=== PATIENT | female | born 1945 | race Caucasian/White ===

== ENCOUNTER 2017-03-06 10:18 | Day surgery (SDC) | payer MEDICARE, OTHER ==
[2017-03-03 16:12] VITALS: BMI 31.1
[~2017-03-06 10:18] MED LIST: CLINDAMYCIN 600 MG in DEXTROSE 5% IN WATER 50 ML IVPB ONE; DEXAMETHASONE SOD PHOSPHATE 10 MG/ML 1 ML VIAL IV ONE; DEXAMETHASONE SOD PHOSPHATE 4 MG/ML 1 ML VIAL IV ONE; FAMOTIDINE 20 MG/2 ML VIAL IV ONE; HYDROmorphone 0.5 MG/0.5 ML SYRINGE IVP PRN; LACTATED RINGERS 1,000 ML IV SCH; ONDANSETRON 4 MG/2 ML VIAL IVP ONE
[2017-03-06 11:38] VITALS: TEMP 97.1
[2017-03-06] MEDS ORDERED: LIDOCAINE 1% 20 ML VIAL (10MG/ML) FOR IV START INTRADERMA ONE (11:53)
[2017-03-06] MEDS ORDERED: MIDAZOLAM 2 MG/2 ML VIAL IV ONE (12:02)
[2017-03-06] MEDS ORDERED: fentaNYL (PF) 50 MCG/ML 2 ML AMP ONE (13:32)
[2017-03-06] MEDS ORDERED: MIDAZOLAM 2 MG/2 ML VIAL ONE (13:32)
[2017-03-06] MEDS ORDERED: KETAMINE 10 MG/ML 20 ML VIAL ONE (13:32)
[2017-03-06] MEDS ORDERED: PROPOFOL 10 MG/ML 20 ML VIAL IV ONE (13:32)
[2017-03-06] MEDS ORDERED: LIDOCAINE 2%-EPI 1:100,000 20 ML VIAL SQ ONE ×2 (14:27)
[2017-03-06] MEDS ORDERED: LACTATED RINGERS 1,000 ML IV ONE (14:55)
[2017-03-06 15:10] VITALS: RESP 18
--- NOTE | 2017-03-06 15:20 | P.OP ---
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 A wider resection with between a 0.5 and a 1 cm margin is appropriate and recommended. This was agreed to by the patient. All risks, benefits, and alternative therapies were discussed in detail. Consent was obtained and all questions were answered. Operative Findings: large left cheek melanoma resected Description of Procedure: this patient was taken to the operative room and placed in the supine position. IV sedation was administered and the left face was sterilely prepped and draped in usual fashion. we marked this area including appropriate margins measuring between 0.5 and 1 cm surrounding this lesion. we anesthetized the left cheek with lidocaine 1% with epinephrine 1 100,000 in approximately 10 minutes were allowed wait for full vasoconstrictive effects to take place. this lesion was excised with a 15 blade delicate plastic scissors and a Brown-Adson forceps and marked appropriately with blue suture on the medial aspect and black suture on the inferior aspect. This left a large left cheek defect. We then developed medial and lateral pedicle flaps measuring a secondary defect of 9 x 9 cm. We did extensive undermining in all directions and we closed the defect by rotating the advancement flaps into position removing burrows triangles and prep and the skin edge. We utilized 3-0 PDS deeply we then used 4 -0 Monocryl in the deep skin and mid skin layer. The final skin closure was with use of a 6-0 nylon in a running nonlocking fashion. Steri-Strips were applied and the patient tolerated this well. follow-up will be in the office in 1 week for recheck and the patient is to contact me if any problems should arise in the interim.
[2017-03-06 15:36] VITALS: BP 132/76; PULSE 103
== END 2017-03-06 15:57 | disposition home or self-care (01) ==
LOC: OR 10:18
PROVIDERS: ATTEND Otolaryngology
DX: D03.39 Melanoma in situ of other parts of face (principal); F32.9 Major depressive disorder, single episode, unspecified; E78.00 Pure hypercholesterolemia, unspecified; I10 Essential (primary) hypertension; J45.909 Unspecified asthma, uncomplicated; E07.9 Disorder of thyroid, unspecified; Z88.0 Allergy status to penicillin; Z88.2 Allergy status to sulfonamides; Z88.8 Allergy status to other drugs, medicaments and biological substances; Z91.018 Allergy to other foods; Z98.51 Tubal ligation status; Z79.899 Other long term (current) drug therapy
CPT/HCPCS: 14301; 14302; J2250; J1100; J2405; J3010; J2704; 88305; 88341; 88342

== ENCOUNTER → 2017-10-08 | Outpatient (CLI) | payer MEDICARE, OTHER ==
--- NOTE | 2017-10-09 14:40 | MM ---
Reason for exam: screening (asymptomatic). Last mammogram was performed 2 years and 7 months ago. History: Patient is postmenopausal. Physical Findings: A clinical breast exam by your physician is recommended on an annual basis and results should be correlated with mammographic findings. MG 3D Screening Mammo W/Cad Bilateral CC and MLO view(s) were taken. Prior study comparison: March 24, 2015, mammogram, performed at [facility]. February 27, 2015, mammogram, performed at [facility]. January 02, 2007, bilateral screening mammogram w/CAD. The breast tissue is heterogeneously dense. This may lower the sensitivity of mammography. Finding: There are typically benign calcifications in the left breast. No suspicious abnormality. No significant changes in finding since March 24, 2015, February 27, 2015, and January 02, 2007. ASSESSMENT: Benign, BI-RAD 2 RECOMMENDATION: Routine screening mammogram of both breasts in 1 year.
== END | disposition home or self-care (01) ==
LOC: RADMAMWWP 10:30
PROVIDERS: ATTEND Family Medicine
DX: Z12.31 Encounter for screening mammogram for malignant neoplasm of breast (principal)
CPT/HCPCS: 77063; 77067

== ENCOUNTER 2019-10-07 15:03 | Emergency (ER) | payer MEDICARE, OTHER ==
[2019-10-07 15:19] VITALS: RESP 18; TEMP 97.6
--- NOTE | 2019-10-07 15:34 | ED ---
Fall HPI - General Chief Complaint: Fall Stated Complaint: Fall, sent by for CT Time Seen by Provider: 10/07/19 15:15 Source: patient, family Mode of arrival: wheelchair - History of Present Illness Initial Comments: The patient is a 73-year-old female past medical history of hypertension who presents to the emergency department after she had an abnormal outpatient CT. The patient reports a fall 1 week ago on when she was stepping out of her vehicle. She states she was bending down to grab her dog's leash when she fell forward and hit her chin on the cement. She denies any loss of consciousness at that time. Did not want to seek medical attention. She had multiple fractured teeth. She went to her primary care doctor 2 days ago because she was having right shoulder pain, headaches and the feeling of being off balance. Dr. Fernandes did send her for an x-ray of her right shoulder which demonstrated a fracture. He placed her in a sling. He sent her today for an outpatient CT. Patient was called and told that her CT was abnormal and needed to come to the emergency room. She does not take any blood thinners. Denies any unilateral numbness or weakness. denies any visual changes. No vomiting. No chest pain or shortness of breath. There are no other alleviating, precipitating or modifying factors - Related Data Home Medications Medication Instructions Recorded Confirmed Aspirin 81 mg PO DAILY 10/15/14 03/06/17 Thyroid, Pork [[place] Thyroid] 30 mg PO DAILY 10/15/14 03/06/17 Cholecalciferol (Vitamin D3) 2,000 unit PO DAILY 03/03/17 03/06/17 [Vitamin D3] DULoxetine HCL [Cymbalta] 60 mg PO DAILY 03/03/17 03/06/17 Magnesium 200 mg PO DAILY 03/03/17 03/06/17 Protriptyline HCl [Vivactil] 5 mg PO BID 03/03/17 03/06/17 Temazepam [Restoril] 15 mg PO HS PRN 03/03/17 03/06/17 aMILoride HCL 5 mg PO DAILY 03/03/17 03/06/17 Previous Rx's Medication Instructions Recorded Clindamycin HCl 300 mg PO Q12HR #20 cap 03/06/17 Hydrocodone/Acetaminophen [[place] 1 - 2 each PO Q6HR PRN #40 tab 03/06/17 5-325] predniSONE [Deltasone] 20 mg PO DIRECTED #5 tab 03/06/17 Allergies Allergy/AdvReac Type Severity Reaction Status Date / Time latex Allergy Rash/Hives Verified 10/07/19 15:19 [place] AdvReac Anaphylaxis Verified 10/07/19 15:19 buspirone HCl [From BuSpar] AdvReac Rapid Verified 10/07/19 15:19 Heart Rate Penicillins AdvReac abscess Verified 10/07/19 15:19 Sulfa (Sulfonamide AdvReac Unknown Verified 10/07/19 15:19 Antibiotics) Review of Systems ROS Statement: Those systems with pertinent positive or pertinent negative responses have been documented in the HPI. ROS Other: All systems not noted in ROS Statement are negative. 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 D &C's. Carpal Tunnel surgery bilat. Past Anesthesia/Blood Transfusion Reactions: Postoperative Nausea & Vomiting (PONV) Past Psychological History: Anxiety Smoking Status: Never smoker Past Alcohol Use History: None Reported Past Drug Use History: None Reported - Past Family History Mother Family Medical History: Cancer Additional Family Medical History / Comment(s): Leukemia Father Family Medical History: Cancer Additional Family Medical History / Comment(s): Lung General Exam Limitations: physical limitation General appearance: alert, in no apparent distress Head exam: Present: atraumatic, normocephalic, normal inspection Eye exam: Present: normal appearance, PERRL, EOMI. Absent: scleral icterus, conjunctival injection, periorbital swelling ENT exam: Present: normal exam, mucous membranes moist Neck exam: Present: normal inspection. Absent: tenderness, meningismus, lymphad enopathy Respiratory exam: Present: normal lung sounds bilaterally. Absent: respiratory distress, wheezes, rales, rhonchi, stridor Cardiovascular Exam: Present: regular rate, normal rhythm, normal heart sounds. Absent: systolic murmur, diastolic murmur, rubs, gallop, clicks GI/Abdominal exam: Present: soft, normal bowel sounds. Absent: distended, tenderness, guarding, rebound, rigid Extremities exam: Present: tenderness (Right shoulder. Right shoulder is in sling. 2+ radial and ulnar pulses.), normal capillary refill. Absent: pedal edema, joint swelling, calf tenderness Back exam: Present: normal inspection Neurological exam: Present: alert, oriented X3, CN II-XII intact Psychiatric exam: Present: normal affect, normal mood Skin exam: Present: warm, dry, intact, normal color. Absent: rash Course Vital Signs 10/07/19 10/07/19 15:15 16:02 Temperature 97.6 F Pulse Rate 81 86 Respiratory 18 18 Rate Blood Pressure 157/85 176/86 O2 Sat by Pulse 97 92 L Oximetry Medical Decision Making - Medical Decision Making Upon arrival patient placed into room 1. A thorough history and physical exam was performed. Patient has no focal neurologic deficits. I did review the patient's CT which was completed earlier today. CT demonstrates a small 6 mm thick, chronic subdural hematoma along the left frontal convexity with some admixed acute subdural blood. Additional foci of acute subarachnoid hemorrhage along the anterior left frontal lobe. Slight 4 mm of rightward midline shift. No herniation or hydrocephalus. Mild bifrontal atrophy and moderate changes. Because of these findings are did recommend transfer to a facility where there is neurosurgery available. Patient and her daughter at bedside did agree to this. I discussed case with Dr. Heredia at [facility] who accepted transfer. Patient is currently awaiting EMS arrival - Lab Data Result diagrams: 10/07/19 15:15 10/07/19 15:15 Lab Results 10/07/19 10/07/19 10/07/19 Range/Units 15:15 15:15 15:15 WBC 8.3 (3.8-10.6) k/uL RBC 4.79 (3.80-5.40) m/uL Hgb 15.1 (11.4-16.0) gm/dL Hct 46.6 H (34.0-46.0) % MCV 97.3 (80.0-100.0) fL MCH 31.5 (25.0-35.0) pg MCHC 32.4 (31.0-37.0) g/dL RDW 12.7 (11.5-15.5) % Plt Count 274 (150-450) k/uL Neutrophils % 60 % Lymphocytes % 30 % Monocytes % 5 % Eosinophils % 2 % Basophils % 1 % Neutrophils # 5.0 (1.3-7.7) k/uL Lymphocytes # 2.5 (1.0-4.8) k/uL Monocytes # 0.4 (0-1.0) k/uL Eosinophils # 0.2 (0-0.7) k/uL Basophils # 0.1 (0-0.2) k/uL PT 9.6 (9.0-12.0) sec INR 0.9 (<1.2) APTT 23.0 (22.0-30.0) sec Sodium 137 (137-145) mmol/L Potassium 4.3 (3.5-5.1) mmol/L Chloride 100 (98-107) mmol/L Carbon Dioxide 28 (22-30) mmol/L Anion Gap 9 mmol/L BUN 21 H (7-17) mg/dL Creatinine 0.58 (0.52-1.04) mg/dL Est GFR (CKD-EPI)AfAm >90 (>60 ml/min/1.73 sqM) Est GFR (CKD-EPI)NonAf >90 (>60 ml/min/1.73 sqM) Glucose 96 (74-99) mg/dL Calcium 10.1 (8.4-10.2) mg/dL Total Bilirubin 0.6 (0.2-1.3) mg/dL AST 24 (14-36) U/L ALT 13 (4-34) U/L Alkaline Phosphatase 107 (38-126) U/L Total Protein 7.9 (6.3-8.2) g/dL Albumin 4.6 (3.5-5.0) g/dL Disposition Clinical Impression: Fall, Blunt head trauma, Subdural bleeding, Subarachnoid bleed, Midline shift of brain Disposition: OTHER INSTITUTION NOT DEFINED Condition: Serious Is patient prescribed a controlled substance at d/c from ED?: No Referrals: Vinod Martin MD [Primary Care Provider] - 1-2 days Time of Disposition: 15:40 - Out of Hospital Transfer - Req. Specs Out of Hospital Transfer - Requested Specifics: Other Emergency Center ([facility]
[2019-10-07 15:55] LABS: Basophils # (A) 0.1 k/uL (0-0.2); Basophils % (A) 1 %; Eosinophils # (A) 0.2 k/uL (0-0.7); Eosinophils % (A) 2 %; HCT 46.6 % (34.0-46.0); HGB 15.1 gm/dL (11.4-16.0); Lymphocytes # (A) 2.5 k/uL (1.0-4.8); Lymphocytes % (A) 30 %; MCH 31.5 pg (25.0-35.0); MCHC 32.4 g/dL (31.0-37.0); MCV 97.3 fL (80.0-100.0); Mean Platelet Volume 7.4; Monocytes # (A) 0.4 k/uL (0-1.0); Monocytes % (A) 5 %; Neutrophils % (A) 60 %; Platelet Count 274 k/uL (150-450); RBC 4.79 m/uL (3.80-5.40); RDW 12.7 % (11.5-15.5); WBC 8.3 k/uL (3.8-10.6)
[2019-10-07 16:02] LABS: ALT 13 U/L (4-34); AST 24 U/L (14-36); African American GFR (CKD) >90 (>60 ml/min/1.73 sqM); Albumin 4.6 g/dL (3.5-5.0); Alkaline Phosphatase 107 U/L (38-126); Anion Gap 9 mmol/L; Blood Urea Nitrogen 21 mg/dL (7-17); Calcium 10.1 mg/dL (8.4-10.2); Carbon Dioxide 28 mmol/L (22-30); Chloride 100 mmol/L (98-107); Glucose 96 mg/dL (74-99); Non-African American GFR(CKD) >90 (>60 ml/min/1.73 sqM); Potassium 4.3 mmol/L (3.5-5.1); Sodium 137 mmol/L (137-145); Total Bilirubin 0.6 mg/dL (0.2-1.3); Total Protein 7.9 g/dL (6.3-8.2)
[2019-10-07 16:04] VITALS: BP 176/86; PULSE 86
[2019-10-07 16:09] LABS: INR 0.9 (<1.2); Prothrombin Time 9.6 sec (9.0-12.0)
== END 2019-10-07 16:10 | disposition other institution (70) ==
LOC: EC 15:03
DX: S06.5X0A Traumatic subdural hemorrhage without loss of consciousness, initial encounter (principal); S06.6X0A Traumatic subarachnoid hemorrhage without loss of consciousness, initial encounter; R90.89 Other abnormal findings on diagnostic imaging of central nervous system; I10 Essential (primary) hypertension; E07.9 Disorder of thyroid, unspecified; F41.9 Anxiety disorder, unspecified; Z79.899 Other long term (current) drug therapy; Z91.040 Latex allergy status; Z91.018 Allergy to other foods; Z88.0 Allergy status to penicillin; Z88.2 Allergy status to sulfonamides; Z88.8 Allergy status to other drugs, medicaments and biological substances; Z85.828 Personal history of other malignant neoplasm of skin; W18.09XA Striking against other object with subsequent fall, initial encounter
CPT/HCPCS: 36415; 70450; 80053; 85025; 85610; 85730; 99284

== ENCOUNTER → 2019-10-07 | Outpatient (CLI) | payer MEDICARE, OTHER ==
--- NOTE | 2019-10-07 15:11 | CT ---
EXAMINATION TYPE: CT brain wo con DATE OF EXAM: 10/07/2019 COMPARISON: None HISTORY: 73-year-old female headache post fall 1 week ago TECHNIQUE: Examination was done in axial plane without intravenous contrast. Coronal and sagittal r econstructions performed. CT DLP: 1005 mGycm Automated exposure control for dose reduction was used. FINDINGS: Mild bifrontal atrophy. Moderate patchy white matter hypodensity suggesting changes of chronic small vessel ischemic disease. There is a small subdural hematoma along the left frontal convexity measuring 6 cm thick. Some admixe d acute hyperdense hemorrhage is present within the subdural collection as well as new foci of subara chnoid blood along the anterior left frontal lobe more superiorly. There is slight 4 mm of rightward midline shift. No hydrocephalus or herniation. Old lacunar infarcts in the bilateral basal ganglia. Paranasal sinuses and mastoid air cells well pneumatized. Orbits and globes are intact. IMPRESSION: 1. A small 6 mm thick, chronic subdural hematoma along the left frontal convexity with some admixed a cute subdural blood. 2. Additional foci of acute subarachnoid hemorrhage along the anterior left frontal lobe. 3. Slight 4 mm of rightward midline shift. No herniation or hydrocephalus. 4. Mild bifrontal atrophy and moderate changes of chronic small vessel ischemic disease. Critical findings discussed with Dr. Martin at 2:45pm using 2 patient identifiers and read back occ urred.
== END | disposition home or self-care (01) ==
LOC: RADCTMAIN 13:00
PROVIDERS: ATTEND Family Medicine
DX: S06.5X9A Traumatic subdural hemorrhage with loss of consciousness of unspecified duration, initial encounter (principal); G31.9 Degenerative disease of nervous system, unspecified
CPT/HCPCS: 70450

== ENCOUNTER → 2019-10-29 | Outpatient (CLI) | payer MEDICARE, OTHER ==
[2019-10-29 15:53] LABS: African American GFR (CKD) >90 (>60 ml/min/1.73 sqM); Blood Urea Nitrogen 18 mg/dL (7-17); Non-African American GFR(CKD) >90 (>60 ml/min/1.73 sqM)
--- NOTE | 2019-10-29 17:05 | CT ---
EXAMINATION TYPE: CT brain wo/w con DATE OF EXAM: 10/29/2019 COMPARISON: 10/07/2019 HISTORY: Follow up scan. CT DLP: 1999.6 mGycm Automated exposure control for dose reduction was used. CONTRAST: CT scan of the head is performed without and with IV Contrast, patient injected with 100 mL of Isovue 300. FINDINGS: There is subarachnoid hemorrhage or cortical contusion appears to have resolved within the left front al lobe. Moderate generalized degenerative change and diffuse white matter changes are most typical r emote ischemia. Calvarium is stable in appearance. There again appears be prominence of the CSF spaces in the frontal lobes greater on the left. There is a small residual component of hyperdensity within the left subdu ral space which is improved relative to the previous exam suggestive of a subacute subdural hematoma. Maximal thickness measures 1 cm on the coronal image and retrospectively measured approximately 7 mm .. There remains slight left to right mass effect or midline shift. Report called to referring clinic [facility]. IMPRESSION: 1. Persistent left-sided subdural hematoma with some intermediate density still within the CSF space suggestive of subacute or tiny component of an acute residual hemorrhage. The amount of acute hemorrh age appears to be significantly reduced. There remains prominence of the CSF space measuring approxim ately 1 cm which may be slightly increased from the prior exam. Minimal mass effect upon the adjacent cortex. Slight left to right mass effect measures approximately 2 mm on today's exam and measured 4m m on the prior exam 2. Left frontal lobe contusion and small amount of subarachnoid hemorrhage appears to have resolved.
== END | disposition home or self-care (01) ==
LOC: RADCTMAIN 15:17
PROVIDERS: ATTEND Specialist
DX: S06.5X0A Traumatic subdural hemorrhage without loss of consciousness, initial encounter (principal); S06.6X0A Traumatic subarachnoid hemorrhage without loss of consciousness, initial encounter
CPT/HCPCS: 82565; 84520; 70470; 36415; Q9967

== ENCOUNTER → 2021-02-23 | Outpatient (CLI) | payer MEDICARE, OTHER ==
[2021-02-23 12:53] LABS: African American GFR (CKD) >90 (>60 ml/min/1.73 sqM); Blood Urea Nitrogen 19 mg/dL (7-17); Non-African American GFR(CKD) >90 (>60 ml/min/1.73 sqM)
--- NOTE | 2021-02-23 14:07 | CT ---
EXAMINATION TYPE: CT brain wo/w con DATE OF EXAM: 02/23/2021 COMPARISON: 10/29/2019 HISTORY: Dizziness, history of bleed from fall [address] DLP: 1485.4 mGycm Automated exposure control for dose reduction was used. CONTRAST: CT scan of the head is performed without and with IV Contrast, patient injected with 100 mL of Isovue 300. FINDINGS: Moderate generalized degenerative change of the greater frontal lobe component. Low-attenuation the w joel matter is nonspecific but most typical remote white matter ischemia. There is no acute hemorrhag e or mass effect. No midline shift. Calvarium intact. There is no enhancing mass or mass affect. IMPRESSION: Degenerative and nonspecific white matter changes most typical of remote ischemia. No midline shift o r enhancing mass. Low-lying cerebellar tonsils correlate for Chiari malformation.
== END | disposition home or self-care (01) ==
LOC: RADCTMAIN 12:08
PROVIDERS: ATTEND Family Medicine
DX: G31.89 Other specified degenerative diseases of nervous system (principal)
CPT/HCPCS: 82565; 84520; 70470; 36415; Q9967

== ENCOUNTER → 2021-09-14 | Outpatient (CLI) | payer MEDICARE, OTHER ==
--- NOTE | 2021-09-14 13:27 | CT ---
EXAMINATION TYPE: CT brain w con DATE OF EXAM: 09/14/2021 COMPARISON: Prior CT brain February 23, 2021 HISTORY: TIA, hx head injury stat hold and call CT DLP: 1085 mGycm Automated exposure control for dose reduction was used. CONTRAST: CT scan of the head is performed with IV Contrast, patient injected with 100 mL of Isovue 300. FINDINGS: There is no abnormal enhancing mass or midline shift identified. Ventricular and sulcal prominence. M oderate low-attenuation in the deep and periventricular white matter redemonstrated. The globes are intact and the visualized sinuses are clear. IMPRESSION: Mild diffuse cerebral atrophy and moderate chronic small vessel ischemic change redemonst rated. No enhancing masses are noted. .
== END | disposition home or self-care (01) ==
LOC: RADCTMAIN 12:07
PROVIDERS: ATTEND General Practice
DX: I67.82 Cerebral ischemia (principal); G31.9 Degenerative disease of nervous system, unspecified
CPT/HCPCS: 70460; Q9967

== ENCOUNTER → 2021-10-08 | Outpatient (CLI) | payer MEDICARE, OTHER ==
--- NOTE | 2021-10-09 03:10 | MR ---
EXAMINATION TYPE: MR brain wo/w con DATE OF EXAM: 10/08/2021 COMPARISON: None HISTORY: Right leg weakness, falls, AMS. CONTRAST: Standard multiplanar, multisequence MRI departmental protocol images were obtained without contrast a nd with 6 mL intravenous Gadavist gadolinium contrast. There is cerebral cortical atrophy. There is no mass effect or midline shift. No sign of intracranial hemorrhage. Diffusion images show no sign of an acute infarct. There is mild thinning of the corpus callosum. There is patchy increased signal on the T2 and FLAIR images in the periventricular white matter with areas that measure up to 1 cm in thickness. There is coalescent signal changes. There are some periph eral white matter high signal foci at the hughes-white matter junction both parietal lobes. Brainstem is intact. Cerebellum is intact. There is no evidence of orbital mass. Optic chiasm is inta ct. The contrast images show no pathologic enhancement. There is normal enhancement of the venous sinuses . IMPRESSION: Cerebral atrophy. Periventricular white matter signal changes likely related to chronic small vessel ischemia and lacunar infarcts. No evidence of any significant cortical infarct. Demyelinating disease not excluded.
== END | disposition home or self-care (01) ==
LOC: RADMRIMAIN 15:35
PROVIDERS: ATTEND Registered Nurse
DX: G31.9 Degenerative disease of nervous system, unspecified (principal); I67.82 Cerebral ischemia
CPT/HCPCS: 70553; A9585

== ENCOUNTER 2024-04-28 12:23 | Emergency (ER) | payer MEDICARE, OTHER ==
--- NOTE | 2024-04-28 12:32 | ED ---
Fall HPI - General Stated Complaint: FALL, HEAD INJURY Time Seen by Provider: 04/28/24 12:31 Source: patient, family, RN notes reviewed Mode of arrival: ambulatory Limitations: no limitations - History of Present Illness Initial Comments: 78-year-old female presented the ER for evaluation of a fall with head injury. Patient states she was walking her large breed dog this morning when the dog started to walk faster than she could causing her to fall on her right side. Patient does report she hit the right side of her face/head but denies loss of consciousness or blood thinner use. Family state patient had a mild nosebleed after fall this is since subsided. Patient does have a history of brain bleeds. Patient is also complaining of right hip pain. Denies any paresthesias to the right lower extremity. She has been able to ambulate since incident. Patient has not taken anything for pain at this time. She denies any dizziness, lightheadedness, chest pain or shortness of breath prior to fall. Patient denies any nausea, vomiting or lethargy post incident. No other injuries or complaints. - Related Data Home Medications Medication Instructions Recorded Confirmed Aspirin 81 mg PO DAILY 10/15/14 03/06/17 Thyroid, Pork [[place] Thyroid] 30 mg PO DAILY 10/15/14 03/06/17 Cholecalciferol (Vitamin D3) 2,000 unit PO DAILY 03/03/17 03/06/17 [Vitamin D3] DULoxetine HCL [Cymbalta] 60 mg PO DAILY 03/03/17 03/06/17 Magnesium 200 mg PO DAILY 03/03/17 03/06/17 Protriptyline HCl [Vivactil] 5 mg PO BID 03/03/17 03/06/17 Temazepam [Restoril] 15 mg PO HS PRN 03/03/17 03/06/17 aMILoride HCL 5 mg PO DAILY 03/03/17 03/06/17 Previous Rx's Medication Instructions Recorded Hydrocodone/Acetaminophen [[place] 1 - 2 each PO Q6HR PRN #40 tab 03/06/17 5-325] clindamycin HCL [Clindamycin HCl] 300 mg PO Q12HR #20 cap 03/06/17 predniSONE [Deltasone] 20 mg PO DIRECTED #5 tab 03/06/17 clindamycin HCL 300 mg PO QID #40 cap 04/28/24 Allergies Allergy/AdvReac Type Severity Reaction Status Date / Time latex Allergy Rash/Hives Verified 04/28/24 12:59 Pelican AdvReac Anaphylaxis Verified 04/28/24 12:59 buspirone HCl [From BuSpar] AdvReac Rapid Verified 04/28/24 12:59 Heart Rate Penicillins AdvReac abscess Verified 04/28/24 12:59 Sulfa (Sulfonamide AdvReac Unknown Verified 04/28/24 12:59 Antibiotics) Review of Systems ROS Statement: Those systems with pertinent positive or pertinent negative responses have been documented in the HPI. ROS Other: All systems not noted in ROS Statement are negative. 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 D &C's. Carpal Tunnel surgery bilat. Past Anesthesia/Blood Transfusion Reactions: Postoperative Nausea & Vomiting (PONV) Past Psychological History: Anxiety Past Alcohol Use History: None Reported Past Drug Use History: None Reported - Past Family History Mother Family Medical History: Cancer Additional Family Medical History / Comment(s): Leukemia Father Family Medical History: Cancer Additional Family Medical History / Comment(s): Lung General Exam - General Exam Comments Initial Comments: Visual Physical Exam Vital signs reviewed General: Well-appearing, nontoxic, no acute distress. Head: Normocephalic, atraumatic abrasion to right cheek, bruising to nose Eyes: PERRLA, EOMI ENT: Airway patent Chest: Nonlabored breathing Skin: No visual rash, normal skin tone Neuro: Alert and oriented 3 Musculoskeletal: No gross abnormalities General appearance: alert, in no apparent distress Head exam: Present: atraumatic, normocephalic, normal inspection Eye exam: Present: normal appearance, PERRL, EOMI. Absent: scleral icterus, conjunctival injection, periorbital swelling Pupils: Present: normal accommodation ENT exam: Present: normal exam, normal oropharynx, mucous membranes moist, TM's normal bilaterally, other (Tenderness to right maxillary sinus with overlying erythema and abrasion. There is also a contusion to nose. No evidence of septal hematoma. Bilateral nostrils patent. No nasal bone tenderness or deviation) Neck exam: Present: normal inspection. Absent: tenderness, meningismus, lymphadenopathy Respiratory exam: Present: normal lung sounds bilaterally. Absent: respiratory distress, wheezes, rales, rhonchi, stridor Cardiovascular Exam: Present: regular rate, normal rhythm, normal heart sounds. Absent: systolic murmur, diastolic murmur, rubs, gallop, clicks Extremities exam: Present: normal inspection, full ROM, tenderness (right greater trochanter), other (2+ bilateral radial/DP and PT pulses) Back exam: Present: normal inspection Neurological exam: Present: alert, oriented X3, CN II-XII intact Skin exam: Present: warm, dry, intact, normal color. Absent: rash Course Vital Signs 04/28/24 04/28/24 04/28/24 12:52 13:32 14:40 Temperature 98.2 F 97.5 F L Pulse Rate 94 86 104 H Respiratory 16 18 16 Rate Blood Pressure 119/77 137/75 117/75 O2 Sat by Pulse 94 L 99 96 Oximetry Medical Decision Making - Medical Decision Making I performed the quick note portion of this chart. Electronically signed by Yesenia Trujillo PA-C Was pt. sent in by a medical professional or institution ([facility], [employer] [facility], urgent care, hospital, or fci...) When possible be specific @ -No Did you speak to anyone other than the patient for history (EMS, parent, family, police, friend...)? What history was obtained from this source @ -Granddaughter and daughter aiding in HPI past medical history. Did you review nursing and triage notes (agree or disagree)? Why? @ -I reviewed and agree with nursing and triage notes Were old charts reviewed (outside hosp., previous admission, EMS record, old EKG, old radiological studies, urgent care reports/EKG's, fci records)? Report findings @ -No old charts were reviewed Differential Diagnosis (chest pain, altered mental status, abdominal pain women, abdominal pain men, vaginal bleeding, weakness, fever, dyspnea, syncope, headache, dizziness, GI bleed, back pain, seizure, CVA, palpatations, mental health, musculoskeletal)? @ -Fracture, dislocation, contusion, hematoma, intracranial hemorrhage, concussion, abrasion, laceration this list does not like to be all-inclusive EKG interpreted by me (3pts min.). @ -None done X-rays interpreted by me (1pt min.). @ -Right hip x-ray interpreted me negative for acute fractures or dislocations. CT interpreted by me (1pt min.). @ -CT brain negative for acute intracranial hemorrhage or midline shift. CT facial bones showing an acute moderate-sized right sided facial focal hematoma with acute comminuted fracture to the anterior and posterior adorno of the right maxillary sinus. Associated acute hemorrhage into the right maxillary sinus. U/S interpreted by me (1pt. min.). @ -None done What testing was considered but not performed or refused? (CT, X-rays, U/S, labs)? Why? @ -None What meds were considered but not given or refused? Why? @ -None Did you discuss the management of the patient with other professionals (professionals i.e. , PA, [employer], lab, RT, psych nurse, family welfare social work professor, special education aide, teacher, payroll officer, gearcase assembler)? Give summary @ -No Was smoking cessation discussed for >3mins.? @ -No Was critical care preformed (if so, how long)? @ -No Were there social determinants of health that impacted care today? How? (Homelessness, low income, unemployed, alcoholism, drug addiction, transportation, low edu. Level, literacy, decrease access to med. care, [facility], rehab)? @ -No Was there de-escalation of care discussed even if they declined (Discuss DNR or withdrawal of care, Hospice)? DNR status @ -No What co-morbidities impacted this encounter? (DM, HTN, Smoking, COPD, CAD, Cancer, CVA, ARF, Chemo, Hep., AIDS, mental health diagnosis, sleep apnea, morbid obesity)? @ -None Was patient admitted / discharged? Hospital course, mention meds given and route, prescriptions, significant lab abnormalities, going to OR and other pertinent info. @ -Discharge. 78-year-old female presented to the ER for evaluation of a fall. History and physical exam completed. Vitals within acceptable limits. No acute neurological findings on exam. Bilateral upper and lower extremities are neurovascularly intact. There is an abrasion and edema noted to right maxillary sinus along with focal tenderness. Contusion noted to nose. No evidence of septal hematoma or nasal bone tenderness/deviation. CT brain negative for acute intracranial hemorrhage or midline shift. CT facial bones showing acute comminuted fractures of the anterior posterior adorno of the right maxillary sinus with associated acute hemorrhage into the right maxillary sinus. Right hip x-ray negative. Patient given p.o. Tylenol for pain control in the ER. Upon reevaluation, patient resting comfortably in wheelchair no signs of acute distress. Given reported hypoxia and triage patient was started on 2 L nasal ca nnula oxygen. Patient was removed from nasal cannula oxygen with oxygen saturations of 99% on room air. Patient was ambulated with no change in oxygen saturations on room air. Patient is stable for discharge. Given maxillary sinus fractures patient will be started on clindamycin, first dose in ER. I instructed her to follow-up closely with ENT for reevaluation in the next 1 to 2 days. I instructed her to refrain from blowing or manipulating nose given maxillary sinus fracture. Strict return parameters discussed. Patient discharged in stable condition with follow-up to PCP. Patient verbally expressed understanding and agreement with care plan. Case discussed with ED attending, Dr. Nassar. Undiagnosed new problem with uncertain prognosis? @ -No Drug Therapy requiring intensive monitoring for toxicity (Heparin, Nitro, Insulin, Cardizem)? @ -No Were any procedures done? @ -No Diagnosis/symptom? @ -Maxillary sinus fracture/ fall Acute, or Chronic, or Acute on Chronic? @ -Acute Uncomplicated (without systemic symptoms) or Complicated (systemic symptoms)? @ -Uncomplicated Side effects of treatment? @ -No Exacerbation, Progression, or Severe Exacerbation? @ -No Poses a threat to life or bodily function? How? (Chest pain, [place], [place], pneumonia, PE, COPD, DKA, ARF, appy, cholecystitis, CVA, Diverticulitis, Homicidal, Suicidal, threat to staff... and all critical care pts) @ -No - Radiology Data Radiology results: report reviewed, image reviewed Disposition Clinical Impression: Fracture of maxillary sinus, Fall Disposition: HOME SELF-CARE Condition: Stable Instructions (If sedation given, give patient instructions): Fall Prevention for Older Adults (ED) Additional Instructions: You may take [id number] Tylenol for pain control. Complete full course of clindamycin. Follow-up closely with ENT in the next 3 to 5 days. Do not blow your nose or manipulate nose in any way. Return to the ER for any new or worsening concerns. Prescriptions: clindamycin HCL 300 mg PO QID #40 cap Is patient prescribed a controlled substance at d/c from ED?: No Referrals: Laverne Aviles DO [Primary Care Provider] - 1-2 days Arsalan Majano MD [STAFF PHYSICIAN] - 1-2 days Time of Disposition: 13:59
--- NOTE | 2024-04-28 13:03 | CT ---
EXAMINATION TYPE: CT brain wo con, CT facial bones wo con DATE OF EXAM: 04/28/2024 COMPARISON: Prior CT September 14, 2021 CLINICAL INDICATION: Female, 78 years old with history of fall no thinners hx bleeds; PHH, fall TECHNIQUE: CT scan of the head and facial bones are performed without contrast. CT DLP: combined dlp 1261.6 (accession [id number]), combined 1261.6 (accession [id number]) mGycm Automated exposure control for dose reduction was used. FINDINGS: There is no acute intracranial hemorrhage or midline shift identified. There is mild to m oderate diffuse ventricular and sulcal prominence redemonstrated. There is mild to moderate low-atte nuation in the deep and periventricular white matter redemonstrated. The calvarium is intact. The mandible is intact. The temporomandibular joints are maintained bilaterally. Zygomatic arches are intact. The nasal bones are intact. The orbital floors and adorno are intact. Bilateral aphakia is no w seen. Intraconal fat is preserved bilaterally. The pterygoid plates are intact. There is new acute comminuted displaced fracture through the anterior wall of the right maxillary sinus with associated hyperdense material or hemorrhage into the right maxillary sinus. There is focal moderate sized subcu taneous hematoma anteriorly near this level extending over the right zygoma. There is likely more sub tle acute nondisplaced fracture through the posterior lateral wall right maxillary sinus with adjacen t deep subcutaneous air and subtle deformity noted. The maxilla is intact. Absent teeth in the maxill a is noted. IMPRESSION: 1. No acute intracranial hemorrhage or midline shift. 2. There is acute moderate size right-sided facial focal hematoma with acute comminuted fractures thr ough the anterior and posterior adorno of the right maxillary sinus. There is associated acute hemorrh age into the right maxillary sinus noted. [facility], , 04/28/2024 1:01 PM
--- NOTE | 2024-04-28 13:53 | XR ---
EXAMINATION TYPE: XR Hip Complete RT DATE OF EXAM: 04/28/2024 1:48 PM COMPARISON: None. CLINICAL INDICATION: Female, 78 years old with history of fall, pain. TECHNIQUE: AP and frogleg views of the right hip are obtained. FINDINGS: There is no acute fracture/dislocation evident in the right hip. [id number] axial julio int space loss and mild acetabular spurring is present. The overlying soft tissue appears unremarkab le. IMPRESSION: There is no acute fracture or dislocation in the right hip. [facility], , 04/28/2024 1:51 PM
[2024-04-28] MEDS: ACETAMINOPHEN TAB 325 MG TAB PO STA (14:36)
[2024-04-28] MEDS: CLINDAMYCIN 150 MG CAP PO STA (14:36)
[2024-04-28 14:43] VITALS: BP 117/75; PULSE 104; RESP 16; TEMP 97.5
== END 2024-04-28 14:49 | disposition home or self-care (01) ==
LOC: EC 12:23
DX: S02.40CA Maxillary fracture, right side, initial encounter for closed fracture (principal); Z88.2 Allergy status to sulfonamides; Z88.0 Allergy status to penicillin; Z91.040 Latex allergy status; Z91.018 Allergy to other foods; W18.30XA Fall on same level, unspecified, initial encounter
CPT/HCPCS: 70450; 70486; 73502; 99284

== ENCOUNTER 2024-06-24 13:56 | Inpatient (IN) | payer MEDICARE, OTHER ==
--- NOTE | 2024-06-24 14:28 | ED ---
General Adult HPI - General Chief complaint: Nausea/Vomiting/Diarrhea Stated complaint: abd pain Time Seen by Provider: 06/24/24 14:00 Source: patient, EMS Mode of arrival: EMS Limitations: no limitations - History of Present Illness Initial comments: Dictation was produced using [employer] dictation software. please excuse any grammatical, word or spelling errors. Chief Complaint: 78-year-old female presents with nausea vomiting diarrhea History of Present Illness: Patient 78-year-old female she presents to the emergency department via EMS from home for worsening weakness. Patient states she has been feeling weak for approximately 1 week. Patient states that she was either currently or previously treated for C. difficile infection. Denies any abdominal pain. No cough sore throat. No other sick contacts. The ROS documented in this emergency department record has been reviewed and confirmed by me. Those systems with pertinent positive or negative responses have been documented in the HPI. All other systems are other negative and/or n oncontributory. - Related Data Home Medications Medication Instructions Recorded Confirmed DULoxetine HCL [Cymbalta] 60 mg PO BID 03/03/17 06/24/24 aMILoride HCL 5 mg PO DAILY 03/03/17 06/24/24 ALPRAZolam [Xanax] 0.5 mg PO HS PRN 06/24/24 06/24/24 Acetaminophen/Diphenhydramine 1 tab PO HS PRN 06/24/24 06/24/24 [Tylenol PM 500-25mg] Bismuth Subsalicylate 525 - 1,050 mg PO Q1H PRN 06/24/24 06/24/24 [Pepto-Bismol Ultra] Dicyclomine [Bentyl] 10 mg PO QID PRN 06/24/24 06/24/24 Florastor 2 cap PO DAILY 06/24/24 06/24/24 Furosemide [Lasix] 20 mg PO DAILY 06/24/24 06/24/24 Omegaxl Supplement 1 cap PO DAILY 06/24/24 06/24/24 Protriptyline HCl [Vivactil] 10 mg PO TID 06/24/24 06/24/24 Thyroid,Pork [[place] Thyroid] 60 mg PO DAILY 06/24/24 06/24/24 Turmeric 400mg 400 mg PO DAILY 06/24/24 06/24/24 Turmeric Xl Supplement 1 cap PO DAILY 06/24/24 06/24/24 Vancomycin HCl [Vancocin HCl] See Taper PO DIRECTED 06/24/24 06/24/24 modafiniL [Provigil] 200 mg PO DAILY 06/24/24 06/24/24 traZODone HCL [Desyrel] 50 mg PO HS 06/24/24 06/24/24 Allergies Allergy/AdvReac Type Severity Reaction Status Date / Time latex Allergy Rash/Hives Verified 06/24/24 15:04 [place] AdvReac Anaphylaxis Verified 06/24/24 15:04 buspirone HCl [From BuSpar] AdvReac Rapid Verified 06/24/24 15:04 Heart Rate Penicillins AdvReac abscess Verified 06/24/24 15:04 Sulfa (Sulfonamide AdvReac Unknown Verified 06/24/24 15:04 Antibiotics) Review of Systems ROS Statement: Those systems with pertinent positive or pertinent negative responses have been documented in the HPI. ROS Other: All systems not noted in ROS Statement are negative. 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 D &C's. Carpal Tunnel surgery bilat. Past Anesthesia/Blood Transfusion Reactions: Postoperative Nausea & Vomiting (PONV) Past Psychological History: Anxiety Past Alcohol Use History: None Reported Past Drug Use History: None Reported - Past Family History Mother Family Medical History: Cancer Additional Family Medical History / Comment(s): Leukemia Father Family Medical History: Cancer Additional Family Medical History / Comment(s): Lung General Exam - General Exam Comments Initial Comments: PHYSICAL EXAM: General Impression: Alert and oriented x3, not in acute distress HEENT: Normocephalic atraumatic, extra-ocular movements intact, pupils equal and reactive to light bilaterally, mucous membranes moist. Cardiovascular: Heart regular rate and rhythm Chest: Able to complete full sentences, no retractions, no tachypnea Abdomen: abdomen soft, non-tender, non-distended, no organomegaly Musculoskeletal: Pulses present and equal in all extremities, no peripheral edema Motor: no focal deficits noted Neurological: CN II-XII grossly intact, no focal motor or sensory deficits noted Skin: Intact with no visualized rashes Psych: Normal affect and mood Limitations: no limitations Course Vital Signs 06/24/24 06/24/24 06/24/24 13:59 16:11 18:47 Temperature 101.5 F H 100.6 F H 99.1 F Pulse Rate 94 98 88 Respiratory 17 19 18 Rate Blood Pressure 124/98 131/63 149/75 O2 Sat by Pulse 97 94 L 99 Oximetry EKG Findings - EKG Comments: EKG Findings:: My EKG interpretation: Ventricular rate 96, sinus rhythm,. 171, QRS 96, QTc 402. No [place] prolongation, no QTC prolongation, no ST or T-wave changes noted. Overall, this EKG is unremarkable Medical Decision Making - Medical Decision Making Was pt. sent in by a medical professional or institution (, PA, CUPOLA PATCHER, urgent care, hospital, or long-term...) When possible be specific @ -No Did you speak to anyone other than the patient for history (EMS, parent, family, police, friend...)? What history was obtained from this source @ -No Did you review nursing and triage notes (agree or disagree)? Why? @ -I reviewed and agree with nursing and triage notes Were old charts reviewed (outside hosp., previous admission, EMS record, old EKG, old radiological studies, urgent care reports/EKG's, long-term records)? Report findings @ -No old charts were reviewed Differential Diagnosis (chest pain, altered mental status, abdominal pain women, abdominal pain men, vaginal bleeding, musculoskeletal, weakness, fever, dyspnea, syncope, headache, dizziness, GI bleed, back pain, seizure, CVA, palpatations, mental health)? @ -Differential Fever: Pneumonia, viral URI, endocarditis, myocarditis, pericarditis, otitis, sinusit is, peritonsillar Abscess, retropharyngeal Abscess, epiglottitis, peritonitis, appendicitis, [place]oxana cystitis, diverticulitis, hepatitis, colitis, UTI, PID, TOA, pyelonephritis, prostatitis, epididymitis, meningitis, encephalitis, pulmonary embolism, CVA, thyroid storm, pancreatitis, adrenal crisis, cavernous sinus thrombosis, this is not meant to be an all-inclusive list. EKG interpreted by me (3pts min.). @ -See above X-rays interpreted by me (1pt min.). @ -Chest x-ray is nonacute CT interpreted by me (1pt min.). @ -None done U/S interpreted by me (1pt. min.). @ -None done What testing was considered but not performed or refused? (CT, X-rays, U/S, labs)? Why? @ -None What meds were considered but not given or refused? Why? @ -None Was smoking cessation discussed for >3mins.? @ -No Were there social determinants of health that impacted care today? How? (Homelessness, low income, unemployed, alcoholism, drug addiction, transportation, low edu. Level, literacy, decrease access to med. care, usp, rehab)? @ -No Was there de-escalation of care discussed even if they declined (Discuss DNR or withdrawal of care, Hospice)? DNR status @ -No What co-morbidities impacted this encounter? (DM, HTN, Smoking, COPD, CAD, Cancer, CVA, ARF, Chemo, Hep., AIDS, mental health diagnosis, sleep apnea, morbid obesity)? @ -Frequent C. difficile infections Was patient admitted / discharged? Hospital course, mention meds given and route, prescriptions, significant lab abnormalities, going to OR and other pertinent info. @ -78-year-old female presents to the emergency department with weakness. She is having symptoms of nausea vomiting diarrhea. Patient currently being treated for C. difficile with oral Vanco. Laboratory evaluation obtained. Leukocytosis of 14.9. Coag panel is unremarkable. Metabolic panel is within acceptable limits. Viral testing is negative. X-ray is nonacute. Clinical presentation concerning for SIRS/sepsis. No obvious source. Pending blood cultures will be admitted consultation to infectious disease. Did you discuss the management of the patient with other professionals (professionals i.e. , PA, C[employer]OLA PATCHER, lab, RT, psych nurse, social services aide, table operator, teacher, light armored vehicle officer, supervisor case loading)? Give summary @ -No Was critical care preformed (if so, how long)? @ -No Undiagnosed new problem with uncertain prognosis? @ -No Drug Therapy requiring intensive monitoring for toxicity (Heparin, Nitro, Insulin, Cardizem)? @ -No Were any procedures done? @ -No Diagnosis/symptom? Acute, or Chronic, or Acute on Chronic? Uncomplicated (without systemic symptoms) or Complicated (systemic symptoms)? @ -SIRS Side effects of treatment? @ -No Exacerbation, Progression, or Severe Exacerbation? @ -No Poses a threat to life or bodily function? How? (Chest pain, [place], NV, pneumonia, PE, COPD, DKA, ARF, appy, cholecystitis, CVA, Diverticulitis, Homicidal, Suicidal, threat to staff... and all critical care pts) @ -yes - Lab Data Result diagrams: 06/24/24 14:20 06/24/24 14:20 Lab Results 06/24/24 06/24/24 06/24/24 Range/Units 14:20 14:20 14:20 WBC 14.9 H (3.8-10.6) k/uL RBC 4.10 (3.80-5.40) m/uL Hgb 13.3 (11.4-16.0) gm/dL Hct 40.2 (34.0-46.0) % MCV 98.0 (80.0-100.0) fL MCH 32.3 (25.0-35.0) pg MCHC 33.0 (31.0-37.0) g/dL RDW 14.2 (11.5-15.5) % Plt Count 202 (150-450) k/uL MPV 7.8 Neutrophils % 87 % Lymphocytes % 7 % Monocytes % 5 % Eosinophils % 0 % Basophils % 0 % Neutrophils # 12.9 H (1.3-7.7) k/uL Lymphocytes # 1.1 (1.0-4.8) k/uL Monocytes # 0.7 (0-1.0) k/uL Eosinophils # 0.1 (0-0.7) k/uL Basophils # 0.0 (0-0.2) k/uL PT (10.0-12.5) sec INR (<1.2) APTT (22.0-30.0) sec Sodium 132 L (137-145) mmol/L Potassium 3.8 (3.5-5.1) mmol/L Chloride 90 L (98-107) mmol/L Carbon Dioxide 33 H (22-30) mmol/L Anion Gap 9 mmol/L BUN 16 (7-17) mg/dL Creatinine 0.55 (0.52-1.04) mg/dL Est GFR (CKD-EPI)AfAm >90 (>60 ml/min/1.73 sqM) Est GFR (CKD-EPI)NonAf 90 (>60 ml/min/1.73 sqM) Glucose 157 H (74-99) mg/dL Plasma Lactic Acid Ernesto 1.7 (0.7-2.0) mmol/L Calcium 9.0 (8.4-10.2) mg/dL Total Bilirubin 0.5 (0.2-1.3) mg/dL AST 32 (14-36) U/L ALT 17 (4-34) U/L Alkaline Phosphatase 91 (38-126) U/L Total Protein 6.9 (6.3-8.2) g/dL Albumin 3.7 (3.5-5.0) g/dL Influenza Type A (PCR) (Not Detectd) Influenza Type B (PCR) (Not Detectd) RSV (PCR) (Not Detectd) SARS-CoV-2 (PCR) (Not Detectd) 06/24/24 06/24/24 Range/Units 18:07 18:46 WBC (3.8-10.6) k/uL RBC (3.80-5.40) m/uL Hgb (11.4-16.0) gm/dL Hct (34.0-46.0) % MCV (80.0-100.0) fL MCH (25.0-35.0) pg MCHC (31.0-37.0) g/dL RDW (11.5-15.5) % Plt Count (150-450) k/uL MPV Neutrophils % % Lymphocytes % % Monocytes % % Eosinophils % % Basophils % % Neutrophils # (1.3-7.7) k/uL Lymphocytes # (1.0-4.8) k/uL Monocytes # (0-1.0) k/uL Eosinophils # (0-0.7) k/uL Basophils # (0-0.2) k/uL PT 11.4 (10.0-12.5) sec INR 1.0 (<1.2) APTT 24.2 (22.0-30.0) sec Sodium (137-145) mmol/L Potassium (3.5-5.1) mmol/L Chloride (98-107) mmol/L Carbon Dioxide (22-30) mmol/L Anion Gap mmol/L BUN (7-17) mg/dL Creatinine (0.52-1.04) mg/dL Est GFR (CKD-EPI)AfAm (>60 ml/min/1.73 sqM) Est GFR (CKD-EPI)NonAf (>60 ml/min/1.73 sqM) Glucose (74-99) mg/dL Plasma Lactic Acid Ernesto (0.7-2.0) mmol/L Calcium (8.4-10.2) mg/dL Total Bilirubin (0.2-1.3) mg/dL AST (14-36) U/L ALT (4-34) U/L Alkaline Phosphatase (38-126) U/L Total Protein (6.3-8.2) g/dL Albumin (3.5-5.0) g/dL Influenza Type A (PCR) Not Detected (Not Detectd) Influenza Type B (PCR) Not Detected (Not Detectd) RSV (PCR) Not Detected (Not Detectd) SARS-CoV-2 (PCR) Not Detected (Not Detectd) Disposition Clinical Impression: SIRS (systemic inflammatory response syndrome) Disposition: ADMITTED IP TO THIS [facility] Condition: Fair Referrals: None,Stated [REFERRING] - 1-2 days Decision Time: 19:43
[2024-06-24] MEDS: LACTATED RINGERS 1,000 ML IV SCH (14:31)
[2024-06-24] MEDS: ACETAMINOPHEN TAB 500 MG TAB PO STA (14:32)
[2024-06-24 14:44] LABS: Basophils % (A) 0 %; Eosinophils # (A) 0.1 k/uL (0-0.7); Eosinophils % (A) 0 %; HCT 40.2 % (34.0-46.0); HGB 13.3 gm/dL (11.4-16.0); Lymphocytes # (A) 1.1 k/uL (1.0-4.8); Lymphocytes % (A) 7 %; MCH 32.3 pg (25.0-35.0); Mean Platelet Volume 7.8; Monocytes # (A) 0.7 k/uL (0-1.0); Monocytes % (A) 5 %; Neutrophils # (A) 12.9 k/uL (1.3-7.7); Neutrophils % (A) 87 %; Platelet Count 202 k/uL (150-450); RDW 14.2 % (11.5-15.5); WBC 14.9 k/uL (3.8-10.6)
[2024-06-24 14:55] LABS: ALT 17 U/L (4-34); AST 32 U/L (14-36); African American GFR (CKD) >90 (>60 ml/min/1.73 sqM); Albumin 3.7 g/dL (3.5-5.0); Alkaline Phosphatase 91 U/L (38-126); Anion Gap 9 mmol/L; Blood Urea Nitrogen 16 mg/dL (7-17); Carbon Dioxide 33 mmol/L (22-30); Chloride 90 mmol/L (98-107); Glucose 157 mg/dL (74-99); Non-African American GFR(CKD) 90 (>60 ml/min/1.73 sqM); Potassium 3.8 mmol/L (3.5-5.1); Sodium 132 mmol/L (137-145); Total Bilirubin 0.5 mg/dL (0.2-1.3); Total Protein 6.9 g/dL (6.3-8.2)
--- NOTE | 2024-06-24 18:02 | XR ---
EXAMINATION TYPE: XR chest 2V DATE OF EXAM: 06/24/2024 5:58 PM COMPARISON: None TECHNIQUE: XR chest 2V Frontal and lateral views of the chest. CLINICAL INDICATION:Female, 78 years old with history of Fever; FINDINGS: Lungs/Pleura: There is no evidence of pleural effusion, focal consolidation, or pneumothorax. Pulmonary vascularity: Unremarkable. Heart/mediastinum: Cardiomediastinal silhouette is enlarged and stable. Atherosclerotic calcificatio ns are seen in the aorta. Musculoskeletal: No acute osseous pathology. High riding right humeral head suggesting chronic rotato r cuff tear. IMPRESSION: No acute cardiopulmonary disease/process. [facility], , 06/24/2024 6:00 PM
[2024-06-24 18:33] LABS: Partial Thromboplastin Time 24.2 sec (22.0-30.0); Prothrombin Time 11.4 sec (10.0-12.5)
[2024-06-24 19:24] LABS: Influenza A Not Detected (Not Detectd); Influenza B Not Detected (Not Detectd); RSV Not Detected (Not Detectd)
[2024-06-24] MEDS ORDERED: NALOXONE 0.4 MG/ML 1 ML VIAL IV PRN (19:39)
[2024-06-24] MEDS ORDERED: diphenhydrAMINE 25 MG CAP PO PRN (20:00)
[2024-06-24] MEDS: ACETAMINOPHEN TAB 325 MG TAB PO PRN (21:24)
[2024-06-24] MEDS: traZODone HCL 50 MG TAB PO SCH (21:24)
[2024-06-24] MEDS: VANCOMYCIN 125 MG CAPSULE PO SCH (21:25)
[2024-06-24] MEDS: SODIUM CHLORIDE 0.9% 1,000 ML IV SCH (21:33)
[2024-06-25] MEDS: SPIRONOLACTONE 25 MG TAB PO SCH (08:55)
--- NOTE | 2024-06-25 12:03 | P.HPIM ---
History of Present Illness 78-year-old female came to emergency department with complaints of increasing weakness nausea vomiting and increasing diarrhea. Patient was discharged on oral vancomycin for C. difficile recently patient continues to have diarrhea and had 4 episodes of diarrhea today. Patient still has some abdominal tenderness to workup for sepsis including chest x-ray, influenza, COVID-19 and RSV are negative. Urine cultures were not obtained urine analysis was not obtained which will be ordered patient is complaining of mild dysuria. I do not have any abdominal CAT scan at this time. Patient did have fever and leukocytosis and is septic. REVIEW OF SYSTEMS: All other systems are negative except those mentioned in the HPI PHYSICAL EXAMINATION: GENERAL: The patient is alert and oriented x3, not in any acute distress. Thin built female HEENT: Pupils are round and equally reacting to light. EOMI. No scleral icterus. No conjunctival pallor. Normocephalic, atraumatic. No pharyngeal erythema. No thyromegaly. CARDIOVASCULAR: S1 and S2 present. No murmurs, rubs, or gallops. PULMONARY: Chest is clear to auscultation, no wheezing or crackles. ABDOMEN: Soft, mild lower abdominal tenderness bilaterally nondistended, normoactive bowel sounds. No palpable organomegaly. MUSCULOSKELETAL: No joint swelling or deformity. EXTREMITIES: No cyanosis, clubbing, or pedal edema. NEUROLOGICAL: Gross neurological examination did not reveal any focal deficits. SKIN: No rashes. Assessment and plan -Sepsis: Secondary to most probably continued C. difficile may need to change her antibiotic to fidaxomicin infectious disease will evaluate the patient. -Hypovolemic hyponatremia hold off on amiloride and Lasix patient does not have any history of congestive heart failure patient will be started on IV fluids hyponatremia secondary to dehydration -Mild dysuria will obtain urinalysis and urine cultures patient's abdominal pain is probably secondary to C. difficile -Hypertension -Fibromyalgia -Hypothyroidism prevention chronic medical problems patient will resume appropriate home medications -Generalized weakness physical therapy Occupational Therapy evaluation, social work consult for placement for text DVT prophylaxis: Lovenox Past Medical History Past Medical History: Asthma, Cancer, Fibromyalgia, Hypertension, Osteoarthritis (OA), Thyroid Disorder Additional Past Medical History / Comment(s): "brain bleed", cdiff History of Any Multi-Drug Resistant Organisms: None Reported Past Surgical History: Adenoidectomy, Orthopedic Surgery, Tonsillectomy Additional Past Surgical History / Comment(s): Uterine Ablation, left knee repair, 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 D &C's. Carpal Tunnel surgery bilat. Past Anesthesia/Blood Transfusion Reactions: Postoperative Nausea & Vomiting (PONV) Past Psychological History: Anxiety Smoking Status: Never smoker Past Alcohol Use History: None Reported Past Drug Use History: None Reported - Past Family History Mother Family Medical History: Cancer Additional Family Medical History / Comment(s): Leukemia Father Family Medical History: Cancer Additional Family Medical History / Comment(s): Lung Medications and Allergies Home Medications Medication Instructions Recorded Confirmed Type DULoxetine HCL [Cymbalta] 60 mg PO BID 03/03/17 06/24/24 History aMILoride HCL 5 mg PO DAILY 03/03/17 06/24/24 History ALPRAZolam [Xanax] 0.5 mg PO HS PRN 06/24/24 06/24/24 History Acetaminophen/Diphenhydramine 1 tab PO HS PRN 06/24/24 06/24/24 History [Tylenol PM 500-25mg] Bismuth Subsalicylate 525 - 1,050 mg PO Q1H PRN 06/24/24 06/24/24 History [Pepto-Bismol Ultra] Dicyclomine [Bentyl] 10 mg PO QID PRN 06/24/24 06/24/24 History Florastor 2 cap PO DAILY 06/24/24 06/24/24 History Furosemide [Lasix] 20 mg PO DAILY 06/24/24 06/24/24 History Omegaxl Supplement 1 cap PO DAILY 06/24/24 06/24/24 History Protriptyline HCl [Vivactil] 10 mg PO TID 06/24/24 06/24/24 History Thyroid,Pork [[place] Thyroid] 60 mg PO DAILY 06/24/24 06/24/24 History Turmeric 400mg 400 mg PO DAILY 06/24/24 06/24/24 History Turmeric Xl Supplement 1 cap PO DAILY 06/24/24 06/24/24 History Vancomycin HCl [Vancocin HCl] See Taper PO DIRECTED 06/24/24 06/24/24 History modafiniL [Provigil] 200 mg PO DAILY 06/24/24 06/24/24 History traZODone HCL [Desyrel] 50 mg PO HS 06/24/24 06/24/24 History Allergies Allergy/AdvReac Type Severity Reaction Status Date / Time latex Allergy Rash/Hives Verified 06/24/24 15:04 [place] AdvReac Anaphylaxis Verified 06/24/24 15:04 buspirone HCl [From BuSpar] AdvReac Rapid Verified 06/24/24 15:04 Heart Rate Penicillins AdvReac abscess Verified 06/24/24 15:04 Sulfa (Sulfonamide AdvReac Unknown Verified 06/24/24 15:04 Antibiotics) Physical Exam Vitals: Vital Signs Temp Pulse Pulse Resp BP BP Pulse Ox 06/25/24 07:00 99.8 F H 80 16 96 06/25/24 02:19 99.4 F 61 14 102/54 98 06/24/24 22:27 100.2 F H 86 15 94/59 93 L 06/24/24 21:38 103 F H 102 H 18 134/71 94 L 06/24/24 18:47 99.1 F 88 18 149/75 99 06/24/24 16:11 100.6 F H 98 19 131/63 94 L 06/24/24 13:59 101.5 F H 94 17 124/98 97 Intake and Output 06/24/24 06/25/24 06/25/24 22:59 06:59 14:59 Output Total 3 Balance -3 Output: Stool 3 Other: Voiding Method Diaper Diaper External Catheter External Catheter # Voids 2 1 # Bowel Movements 1 1 Weight 54.431 kg Results CBC & Chem 7: 06/24/24 14:20 06/24/24 14:20 Labs: Abnormal Lab Results - Last 24 Hours (Table) 06/24/24 06/24/24 Range/Units 14:20 14:20 WBC 14.9 H (3.8-10.6) k/uL Neutrophils # 12.9 H (1.3-7.7) k/uL Sodium 132 L (137-145) mmol/L Chloride 90 L (98-107) mmol/L Carbon Dioxide 33 H (22-30) mmol/L Glucose 157 H (74-99) mg/dL Thrombosis Risk Factor Assmnt - Choose All That Apply Each Risk Factor Represents 3 Points: Age 75 years or older Thrombosis Risk Factor Assessment Total Risk Factor Score: 3 Thrombosis Risk Factor Assessment Level: Moderate Risk
[2024-06-25] MEDS: SODIUM CHLORIDE 0.9% 1,000 ML IV SCH (12:13)
[2024-06-25] MEDS: DULoxetine HCL 60 MG CAPSULE.DR PO SCH (12:31)
[2024-06-25 14:30] LABS: Appearance,Urine Clear (Clear); Bilirubin,Urine Negative (Negative); Blood,Urine Small (Negative); Color,Urine Yellow; Glucose,Urine (UA) Negative (Negative); Hyaline Casts,Urine 1 /lpf (0-2); Ketones,Urine 1+ (Negative); Leukocyte Esterase,Urine Negative (Negative); Mucus,Urine Rare /hpf; Nitrite,Urine Negative (Negative); PH, Urine 6.5 (5.0-8.0); Protein,Urine 1+ (Negative); RBC,Urine 19 /hpf (0-5); Specific Gravity,Urine 1.017 (1.001-1.035); Squamous Epithelial Cell,Urine <1 /hpf (0-4); Urobilinogen,Urine <2.0 mg/dL (<2.0); WBC,Urine 9 /hpf (0-5)
--- NOTE | 2024-06-25 14:59 | P.CONS ---
History of Present Illness - Reason for Consult Consult date: 06/25/24 SIRS Requesting physician: Pratik Garcia - Chief Complaint Weakness diarrhea x 1 week - History of Present Illness Patient is a 78-year-old female with a past medical history significant for hypertension osteoarthritis hypothyroidism asthma anxiety did have a history of C. difficile colitis about 6 years ago, presenting to the hospital for evaluation of weakness that has been progressive getting worse patient also complaining of diarrhea that been going on for about a week with multiple loose stools patient mention did have small amount of blood in the st ool also complaining of abdominal pain mostly dull aching moderate intensity did have nausea but no vomiting with the symptoms the patient has been evaluated on presentation to the hospital patient did have a temperature of 101.5 F subsequently did have a temperature of 103 F, patient was not tachycardic hypotensive did have white count 14.9 with a left shift creatinine has been normal urine with mild pyuria leukocyte esterase with negative influenza RSV COVID testing negative chest x-ray no acute cardiopulmonary disease process patient has been empirically started on oral vancomycin infectious disease was consulted for further management of antibiotic therapy Review of Systems Positive point and negatives has been mentioned in the HPI, complete review of systems was performed and all other systems are negative Past Medical History Past Medical History: Asthma, Cancer, Fibromyalgia, Hypertension, Osteoarthritis (OA), Thyroid Disorder Additional Past Medical History / Comment(s): "brain bleed", cdiff History of Any Multi-Drug Resistant Organisms: None Reported Past Surgical History: Adenoidectomy, Orthopedic Surgery, Tonsillectomy Additional Past Surgical History / Comment(s): Uterine Ablation, left knee repai r, 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 D &C's. Carpal Tunnel surgery bilat. Past Anesthesia/Blood Transfusion Reactions: Postoperative Nausea & Vomiting (PONV) Past Psychological History: Anxiety Smoking Status: Never smoker Past Alcohol Use History: None Reported Past Drug Use History: None Reported - Past Family History Mother Family Medical History: Cancer Additional Family Medical History / Comment(s): Leukemia Father Family Medical History: Cancer Additional Family Medical History / Comment(s): Lung Medications and Allergies Home Medications Medication Instructions Recorded Confirmed Type DULoxetine HCL [Cymbalta] 60 mg PO BID 03/03/17 06/24/24 History aMILoride HCL 5 mg PO DAILY 03/03/17 06/24/24 History ALPRAZolam [Xanax] 0.5 mg PO HS PRN 06/24/24 06/24/24 History Acetaminophen/Diphenhydramine 1 tab PO HS PRN 06/24/24 06/24/24 History [Tylenol PM 500-25mg] Bismuth Subsalicylate 525 - 1,050 mg PO Q1H PRN 06/24/24 06/24/24 History [Pepto-Bismol Ultra] Dicyclomine [Bentyl] 10 mg PO QID PRN 06/24/24 06/24/24 History Florastor 2 cap PO DAILY 06/24/24 06/24/24 History Furosemide [Lasix] 20 mg PO DAILY 06/24/24 06/24/24 History Omegaxl Supplement 1 cap PO DAILY 06/24/24 06/24/24 History Protriptyline HCl [Vivactil] 10 mg PO TID 06/24/24 06/24/24 History Thyroid,Pork [[place] Thyroid] 60 mg PO DAILY 06/24/24 06/24/24 History Turmeric 400mg 400 mg PO DAILY 06/24/24 06/24/24 History Turmeric Xl Supplement 1 cap PO DAILY 06/24/24 06/24/24 History Vancomycin HCl [Vancocin HCl] See Taper PO DIRECTED 06/24/24 06/24/24 History modafiniL [Provigil] 200 mg PO DAILY 06/24/24 06/24/24 History traZODone HCL [Desyrel] 50 mg PO HS 06/24/24 06/24/24 History Allergies Allergy/AdvReac Type Severity Reaction Status Date / Time latex Allergy Rash/Hives Verified 06/24/24 15:04 Orange AdvReac Anaphylaxis Verified 06/24/24 15:04 buspirone HCl [From BuSpar] AdvReac Rapid Verified 06/24/24 15:04 Heart Rate Penicillins AdvReac abscess Verified 06/24/24 15:04 Sulfa (Sulfonamide AdvReac Unknown Verified 06/24/24 15:04 Antibiotics) Physical Exam Vitals: Vital Signs Temp Pulse Pulse Resp BP BP Pulse Ox 06/25/24 07:00 99.8 F H 80 16 96 06/25/24 02:19 99.4 F 61 14 102/54 98 06/24/24 22:27 100.2 F H 86 15 94/59 93 L 06/24/24 21:38 103 F H 102 H 18 134/71 94 L 06/24/24 18:47 99.1 F 88 18 149/75 99 06/24/24 16:11 100.6 F H 98 19 131/63 94 L 06/24/24 13:59 101.5 F H 94 17 124/98 97 Intake and Output 06/24/24 06/25/24 06/25/24 22:59 06:59 14:59 Output Total 3 Balance -3 Output: Stool 3 Other: Voiding Method Diaper Diaper External Catheter External Catheter # Voids 2 1 # Bowel Movements 1 1 Weight 54.431 kg GENERAL DESCRIPTION: Elderly female lying in bed, no distress. No tachypnea or accessory muscle of respiration use. HEENT: Shows Pallor , no scleral icterus. Oral mucous membrane is dry. No pharyngeal erythema or thrush NECK: Trachea central, no thyromegaly. LUNGS: Unlabored breathing. Clear to auscultation anteriorly. No wheeze or crackle. HEART: S1, S2, regular rate and rhythm. No loud murmur ABDOMEN: Soft, left-sided tenderness EXTREMITIES: No edema of feet. SKIN: No rash, no masses palpable. NEUROLOGICAL: The patient is awake, alert, oriented x3, mood and affect normal. Results CBC & Chem 7: 06/26/24 02:40 06/26/24 02:40 Labs: Abnormal Lab Results - Last 24 Hours (Table) 06/24/24 06/24/24 Range/Units 14:20 14:20 WBC 14.9 H (3.8-10.6) k/uL Neutrophils # 12.9 H (1.3-7.7) k/uL Sodium 132 L (137-145) mmol/L Chloride 90 L (98-107) mmol/L Carbon Dioxide 33 H (22-30) mmol/L Glucose 157 H (74-99) mg/dL Assessment and Plan (1) Sepsis Current Visit: Yes Status: Acute Code(s): A41.9 - SEPSIS, UNSPECIFIED ORGANISM SNOMED Code(s): 39236366 Plan: 1patient presented hospital with sepsis in this patient did have fever tachycardia elevated white count meeting currently for SIRS source is likely C. difficile colitis as the patient presenting with significant diarrhea abdominal tenderness and pain and elevated white count 2we will check a stool for C. difficile and stool culture, if negative will order CT abdominal pelvis to rule out other etiology 3adjust the dose of vancomycin to 125 p.o. every 6 hours and avoid antimotility agent We will follow on clinical condition and cultures to further adjust medication if needed Thank you for this consultation we will follow the patient along with you Dictation was produced using [employer] dictation software. please excuse any grammatical, word or spelling errors. Time with Patient: Greater than 30
[2024-06-25] MEDS: VANCOMYCIN 125 MG CAPSULE PO SCH (15:53)
[2024-06-25] MEDS: PROTRIPTYLINE HCL 10 MG PO SCH (15:55)
[2024-06-26] MEDS: THYROID, PORK 30 MG TAB PO SCH (06:05)
[2024-06-26] MEDS: ENOXAPARIN 30 MG/0.3 ML SYRINGE SQ SCH (08:28)
[2024-06-26 09:42] LABS: HCT 35.6 % (37.2-46.3); HGB 11.5 g/dL (12.0-15.0); MCH 32.3 pg (27.0-32.0); MCHC 32.3 g/dL (32.0-37.0); Mean Platelet Volume 9.9 FL (9.5-12.2); NRBC Per 100 WBC 0 X 10*3/uL (0.00-0.01); Platelet Count 165 X 10*3/uL (140-440); RBC 3.56 X 10*6/uL (4.10-5.20); WBC 14.78 X 10*3/uL (4.50-10.00)
[2024-06-26 09:44] LABS: Blood Urea Nitrogen 11.4 mg/dL (9.0-27.0); Calcium 8.5 mg/dL (8.7-10.3); Carbon Dioxide 26.5 mmol/L (21.6-31.8); Chloride 99 mmol/L (96-109); Glucose 101 mg/dL (70-110); Magnesium 1.5 mg/dL (1.5-2.4); Potassium 3.2 mmol/L (3.5-5.5); Sodium 139 mmol/L (135-145)
--- NOTE | 2024-06-26 13:41 | P.PN ---
Subjective Progress Note Date: 06/26/24 Principal diagnosis: Reason for follow-up is leukocytosis and C. difficile colitis Patient is a 78-year-old female with a past medical history significant for hypertension osteoarthritis hypothyroidism asthma anxiety did have a history of C. difficile colitis about 6 years ago, presenting to the hospital for evaluation of weakness and diarrhea patient did have elevated white count stool for C. difficile PCR came back positive. On today's evaluation that is 06/26/2024, patient did not have any fever and denies any chills, patient is breathing comfortably on room air, patient with no chest pain or cough patient did have improvement in her abdominal pain nausea bu t no vomiting and diarrhea has slowed down. Patient white count is 14.78, creatinine is 0.6 stool for C. difficile PCR is positive Objective - Vital Signs Vital signs: Vital Signs Temp 98.6 F 06/26/24 07:40 Pulse 98 06/26/24 07:40 Resp 17 06/26/24 07:40 BP 105/67 06/26/24 07:40 Pulse Ox 95 06/26/24 07:40 FiO2 Intake & Output 06/25/24 06/26/24 06/26/24 18:59 06:59 18:59 Output Total 302 Balance -302 Output: Urine 300 Stool 2 Other: Voiding Method Diaper External Catheter External Catheter External Catheter # Voids 1 2 # Bowel Movements 1 1 - Exam GENERAL DESCRIPTION: An elderly female lying in bed in no distress RESPIRATORY SYSTEM: Unlabored breathing , decreased breath sounds at bases HEART: S1 S2 regular rate and rhythm , ABDOMEN: Soft , no tenderness EXTREMITIES: No edema feet - Labs CBC & Chem 7: 06/26/24 02:40 06/26/24 02:40 Labs: Abnormal Lab Results - Last 24 Hours (Table) 06/25/24 06/26/24 06/26/24 Range/Units 13:30 02:40 02:40 WBC 14.78 H (4.50-10.00) X 10*3/uL RBC 3.56 L (4.10-5.20) X 10*6/uL Hgb 11.5 L (12.0-15.0) g/dL Hct 35.6 L (37.2-46.3) % MCV 100.0 H (80.0-97.0) FL MCH 32.3 H (27.0-32.0) pg Potassium 3.2 L (3.5-5.5) mmol/L Anion Gap 13.50 H (4.00-12.00) mmol/L Calcium 8.5 L (8.7-10.3) mg/dL Urine Protein 1+ H (Negative) Urine Ketones 1+ H (Negative) Urine Blood Small H (Negative) Urine RBC 19 H (0-5) /hpf Urine WBC 9 H (0-5) /hpf Urine Mucus Rare H (None) /hpf Microbiology - Last 24 Hours (Table) 06/24/24 14:20 Blood Culture - Preliminary Blood Assessment and Plan (1) Sepsis Current Visit: Yes Status: Acute Code(s): A41.9 - SEPSIS, UNSPECIFIED ORGANISM SNOMED Code(s): 11850558 (2) C. difficile colitis Current Visit: Yes Status: Acute Code(s): A04.72 - ENTEROCOLITIS D/T CLOSTRIDIUM DIFFICILE, NOT SPCF RECUR SNOMED Code(s): 143413681 (3) Allergy to multiple antibiotics Current Visit: Yes Status: Acute Code(s): Z88.1 - ALLERGY STATUS TO OTHER ANTIBIOTIC AGENTS SNOMED Code(s): 103393639 Plan: 1patient presented hospital with sepsis in this patient did have fever tachycardia elevated white count meeting currently for SIRS source is likely C. difficile colitis as the patient presenting with significant diarrhea abdominal tenderness and pain and elevated white count 2patient stool for C. difficile PCR came back positive 3patient mentions some improvement in her symptoms to continue vancomycin to 125 p.o. every 6 hours and monitor clinical course closely Daughter at the bedside multiple question concern answered Dictation was produced using [employer] dictation software. please excuse any grammatical, word or spelling errors. Time with Patient: Less than 30
[2024-06-26] MEDS: ALPRAZolam 0.5 MG TAB PO PRN (22:22)
[2024-06-27] MEDS: ENOXAPARIN 40 MG/0.4 ML SYRINGE SQ SCH (10:27)
--- NOTE | 2024-06-27 14:43 | P.PN ---
Subjective Date of service for this note is a 06/26/2024, patient seen and examined by me at bedside 78-year-old female came to emergency department with complaints of increasing weakness nausea vomiting and increasing diarrhea. Patient was discharged on oral vancomycin for C. difficile recently patient continues to have diarrhea and had 4 episodes of diarrhea today. Patient still has some abdominal tenderness to workup for sepsis including chest x-ray, influenza, COVID-19 and RSV are negative. Urine cultures were not obtained urine analysis was not obtained which will be ordered patient is complaining of mild dysuria. I do not have any abdominal CAT scan at this time. Patient did have fever and leukocytosis and is septic. 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 difficile. Patient was counseled to follow-up with infectious disease team upon discharge and she agrees Objective - Vital Signs Vital signs: Vital Signs Temp 97.8 F 06/27/24 13:17 Pulse 88 06/27/24 13:17 Resp 17 06/27/24 13:17 BP 118/69 06/27/24 13:17 Pulse Ox 96 06/27/24 13:17 FiO2 Intake & Output 06/26/24 06/27/24 06/27/24 17:59 06:59 18:59 Intake Total Balance Intake: Oral Other: Voiding Method External Catheter # Voids # Bowel Movements - Exam GENERAL: The patient is alert and oriented x3, not in any acute distress. Well developed, well nourished. HEENT: Pupils are round and equally reacting to light. EOMI. No scleral icterus. No conjunctival pallor. Normocephalic, atraumatic. No pharyngeal erythema. No thyromegaly. CARDIOVASCULAR: S1 and S2 present. No murmurs, rubs, or gallops. PULMONARY: Chest is clear to auscultation, no wheezing , no crackles. ABDOMEN: Soft, nontender, nondistended, normoactive bowel sounds. No palpable organomegaly. MUSCULOSKELETAL: No joint swelling or deformity. EXTREMITIES: No cyanosis, clubbing, or pedal edema. NEUROLOGICAL: Gross neurological examination did not reveal any focal deficits. SKIN: No rashes. no petechiae. - Labs CBC & Chem 7: 06/26/24 02:40 06/26/24 02:40 Labs: Microbiology - Last 24 Hours (Table) 06/26/24 02:19 Stool Culture - Preliminary Stool 06/24/24 14:20 Blood Culture - Preliminary Blood Assessment and Plan Assessment: Assessment and plan -Sepsis: Secondary to most probably continued C. difficile. Continued with oral vancomycin. ID team on the case -Hypovolemic hyponatremia hold off on amiloride and Lasix patient does not have any history of congestive heart failure patient will be started on IV fluids hyponatremia secondary to dehydration -Mild dysuria will obtain urinalysis and urine cultures patient's abdominal pain is probably secondary to C. difficile. Per urine analysis doubt UTI. ID team on the case -Hypertension -Fibromyalgia -Hypothyroidism prevention chronic medical problems patient will resume appropriate home medications -Generalized weakness physical therapy Occupational Therapy evaluation, social work consult for placement for text DVT prophylaxis: Lovenox
--- NOTE | 2024-06-27 15:44 | P.PN ---
Subjective Progress Note Date: 06/27/24 Principal diagnosis: Reason for follow-up is leukocytosis and C. difficile colitis Patient is a 78-year-old female with a past medical history significant for hypertension osteoarthritis hypothyroidism asthma anxiety did have a history of C. difficile colitis about 6 years ago, presenting to the hospital for evaluation of weakness and diarrhea patient did have elevated white count stool for C. difficile PCR came back positive. On today's evaluation that is 06/27/2024, Patient is afebrile patient is currently on room air and denies having any shortness of breath, the patient denies any chest pain or cough, the patient denies any nausea vomiting mention still having some diarrhea. Patient did not have a lab draw today stool cultures are pending Objective - Vital Signs Vital signs: Vital Signs Temp 97.8 F 06/27/24 13:17 Pulse 88 06/27/24 13:17 Resp 17 06/27/24 13:17 BP 118/69 06/27/24 13:17 Pulse Ox 96 06/27/24 13:17 FiO2 Intake & Output 06/26/24 06/27/24 06/27/24 17:59 06:59 18:59 Intake Total Balance Intake: Oral Other: Voiding Method External Catheter # Voids # Bowel Movements - Exam GENERAL DESCRIPTION: An elderly female lying in bed in no distress RESPIRATORY SYSTEM: Unlabored breathing , decreased breath sounds at bases HEART: S1 S2 regular rate and rhythm , ABDOMEN: Soft , no tenderness EXTREMITIES: No edema feet - Labs CBC & Chem 7: 06/26/24 02:40 06/26/24 02:40 Labs: Microbiology - Last 24 Hours (Table) 06/26/24 02:19 Stool Culture - Preliminary Stool 06/24/24 14:20 Blood Culture - Preliminary Blood Assessment and Plan (1) Sepsis Current Visit: Yes Status: Acute Code(s): A41.9 - SEPSIS, UNSPECIFIED ORGANISM SNOMED Code(s): 95348120 (2) C. difficile colitis Current Visit: Yes Status: Acute Code(s): A04.72 - ENTEROCOLITIS D/T CLOSTRIDIUM DIFFICILE, NOT SPCF RECUR SNOMED Code(s): 478281729 (3) Allergy to multiple antibiotics Current Visit: Yes Status: Acute Code(s): Z88.1 - ALLERGY STATUS TO OTHER ANTIBIOTIC AGENTS SNOMED Code(s): 848095973 Plan: 1patient presented hospital with sepsis in this patient did have fever tachycardia elevated white count meeting currently for SIRS source is likely C. difficile colitis as the patient presenting with significant diarrhea abdominal tenderness and pain and elevated white count 2patient stool for C. difficile PCR came back positive 3patient still complaining of diarrhea will add Questran for symptomatic relief and continue with the vancomycin p.o. Dictation was produced using [employer] dictation software. please excuse any grammatical, word or spelling errors. Time with Patient: Less than 30
[2024-06-27] MEDS: MAGNESIUM OXIDE 400 MG TAB PO SCH (16:26)
[2024-06-27] MEDS: CHOLESTYRAMINE (WITH SUGAR) 4 GM PACKET PO SCH (18:20)
[2024-06-27] MEDS ORDERED: CHOLESTYRAMINE (WITH SUGAR) 4 GM PACKET PO SCH (21:00)
[2024-06-28 08:22] LABS: Calcium 8.8 mg/dL (8.7-10.3); Carbon Dioxide 32.3 mmol/L (21.6-31.8); Chloride 97 mmol/L (96-109); Glucose 99 mg/dL (70-110); Magnesium 1.7 mg/dL (1.5-2.4); Sodium 139 mmol/L (135-145)
[2024-06-28 08:56] LABS: Basophils # (A) 0.04 X 10*3/uL (0.00-0.10); Basophils % (A) 0.6 %; Eosinophils # (A) 0.12 X 10*3/uL (0.04-0.35); Eosinophils % (A) 1.7 %; HCT 34.6 % (37.2-46.3); HGB 11.4 g/dL (12.0-15.0); Lymphocytes # (A) 2.56 X 10*3/uL (0.90-5.00); Lymphocytes % (A) 36.5 %; MCH 32.6 pg (27.0-32.0); MCHC 32.9 g/dL (32.0-37.0); MCV 98.9 FL (80.0-97.0); Mean Platelet Volume 9.3 FL (9.5-12.2); Monocytes # (A) 0.55 X 10*3/uL (0.20-1.00); Monocytes % (A) 7.8 %; NRBC Per 100 WBC 0 X 10*3/uL (0.00-0.01); Neutrophils # (A) 3.71 X 10*3/uL (1.80-7.70); Neutrophils % (A) 52.8 %; Platelet Count 173 X 10*3/uL (140-440); RDW 14.3 % (11.5-14.5); WBC 7.02 X 10*3/uL (4.50-10.00)
--- NOTE | 2024-06-28 10:21 | P.PN ---
Progress Note - Text Progress Note Date: 06/28/24 Reason for follow-up is leukocytosis and C. difficile colitis Patient is a 78-year-old female with a past medical history significant for hypertension osteoarthritis hypothyroidism asthma anxiety did have a history of C. difficile colitis about 6 years ago, presenting to the hospital for evaluation of weakness and diarrhea patient did have elevated white count stool for C. difficile PCR came back positive. On today's evaluation that is 06/27/2024, Patient is afebrile patient is cu rrently on room air and denies having any shortness of breath, the patient denies any chest pain or cough, the patient denies any nausea vomiting mention still having some diarrhea. Patient did not have a lab draw today stool cultures are pending June 28: Patient is at least 3 BMs in the last 24 hours. Loose. Having abdominal cramps. On a regular diet. Scale back to full liquids. On vancomy walker. No fever or chills. Some nausea. Active Medications Acetaminophen (Acetaminophen Tab 325 Mg Tab) 650 mg PO Q6HR PRN PRN Reason: Mild Pain or Fever > 100.5 Last Admin: 06/27/24 21:46 Dose: 650 mg Acetaminophen (Acetaminophen Tab 500 Mg Tab) 500 mg PO HS PRN PRN Reason: PAIN/SLEEP Alprazolam (Alprazolam 0.5 Mg Tab) 0.5 mg PO HS PRN PRN Reason: Anxiety Last Admin: 06/26/24 22:22 Dose: 0.5 mg Cholestyramine Resin (Cholestyramine (With Sugar) 4 Gm Packet) 4 gm PO BID@0600,1800 [facility] Last Admin: 06/28/24 06:21 Dose: 4 gm Diphenhydramine HCl (Diphenhydramine 25 Mg Cap) 25 mg PO HS PRN PRN Reason: PAIN/SLEEP Duloxetine HCl (Duloxetine Hcl 60 Mg Capsule.Dr) 60 mg PO BID [facility] Last Admin: 06/28/24 09:12 Dose: 60 mg Enoxaparin Sodium (Enoxaparin 40 Mg/0.4 Ml Syringe) 40 mg SQ DAILY [facility] Last Admin: 06/28/24 09:12 Dose: 40 mg Sodium Chloride (Saline 0.9%) 1,000 mls @ 20 mls/hr IV .Q24H [facility] Last Admin: 06/27/24 18:02 Dose: Not Given Sodium Chloride (Saline 0.9%) 1,000 mls @ 75 mls/hr IV .[id number] [facility] Last Admin: 06/28/24 06:22 Dose: Not Given Magnesium Oxide (Magnesium Oxide 400 Mg Tab) 400 mg PO BID [facility] Stop: 06/30/24 14:59 Last Admin: 06/28/24 09:12 Dose: 400 mg Modafinil (Modafinil 200 Mg Tab) 200 mg PO DAILY [facility] Last Admin: 06/28/24 09:12 Dose: 200 mg Naloxone HCl (Naloxone 0.4 Mg/Ml 1 Ml Vial) 0.2 mg IV Q2M PRN PRN Reason: Opioid Reversal Non-Formulary Medication (Protriptyline Hcl [Vivactil]) 10 mg PO TID [facility] Last Admin: 06/28/24 09:09 Dose: Not Given Thyroid (Thyroid, Pork 30 Mg Tab) 60 mg PO DAILY@0630 [facility] Last Admin: 06/28/24 06:21 Dose: 60 mg Trazodone HCl (Trazodone Hcl 50 Mg Tab) 50 mg PO HS [facility] Last Admin: 06/27/24 21:46 Dose: 50 mg Vancomycin HCl (Vancomycin 125 Mg Capsule) 125 mg PO Q6H [facility]; Protocol Last Admin: 06/28/24 09:12 Dose: 125 mg On examination: VITAL SIGNS: [97.9, 60, 17, 98 x 54, 95% on room air] GENERAL APPEARANCE: BMI 21.3, reclining bed awake a bit tired. HEENT: Normal external appearance of nose and ear. Oral cavity normal EYES: Pupils equal. Conjunctiva normal. NECK: JVD not raised. Mass not palpable. RESPIRATORY: Respiratory effort normal. Lungs clear to auscultation. CARDIOVASCULAR: First and second sounds normal. No edema. ABDOMEN: Soft. Slightly distended. Mild tenderness. No guarding rigidity. Liver and spleen not palpable. No tenderness. No mass palpable. MUSCULOSKELETAL: Osteoarthritis multiple joints PSYCHIATRY: Alert and oriented x3. Mood and affect normal. INVESTIGATIONS, reviewed in the clinical context: June 28: White count 7.0 hemoglobin 11.4 platelets 133 sodium 139 potassium 3 BUN 7 creatinine 0.5 C. difficile toxin PCR: Positive Influenza type A, type B, RSV, SARS-CoV-2: Not detected Assessment plan: -Acute C. difficile colitis. Slow to respond Patient is at least more than 3 loose stools in last 24 hours. Scaled back to full liquid diet. Still having abdominal cramping pain. -Intermittent asthma Currently controlled -Chronic fibromyalgia Cymbalta -Macrocytic anemia Check thyroid, B12 folate iron studies -Essential hypertension Chronically on Lasix. Hold for now -Hypokalemia from diarrhea Change IV fluids to LR. Supplement potassium -Primary osteoarthritis -Hypothyroid [place] Thyroid 60 mg a day -Chronic gait dysfunction does use a four-wheel walker at baseline -Chronic anxiety depression Cymbalta 60 mg twice daily -Chronic insomnia Trazodone 50 mg nightly -DNR
[2024-06-28] MEDS: POTASSIUM CHLORIDE ER 20 MEQ TAB.ER PO STA (11:20)
[2024-06-28] MEDS: LACTATED RINGERS 1,000 ML IV SCH (11:22)
[2024-06-28 16:00] LABS: % Iron Saturation 37.64 (12.00-45.00); Iron 67 UG/DL (50-170); Total Iron Binding Capacity 178 UG/DL (228-460)
--- NOTE | 2024-06-28 16:00 | P.PN ---
Subjective Progress Note Date: 06/28/24 Principal diagnosis: Reason for follow-up is leukocytosis and C. difficile colitis Patient is a 78-year-old female with a past medical history significant for hypertension osteoarthritis hypothyroidism asthma anxiety did have a history of C. difficile colitis about 6 years ago, presenting to the hospital for evaluation of weakness and diarrhea patient did have elevated white count stool for C. difficile PCR came back positive. On today's evaluation that is 06/28/2024, patient has been afebrile, patient is breathing comfortably and is currently on room air, patient denies having any significant cough no chest pain, patient denies nausea vomiting still complainin g of multiple loose stools has about 3 loose stools reported by the nursing staff. Patient white count normalized to 7.0, creatinine 0.5 stool and blood culture currently pending Objective - Vital Signs Vital signs: Vital Signs Temp 97.9 F 06/28/24 07:26 Pulse 60 06/28/24 07:26 Resp 17 06/28/24 07:26 BP 98/54 06/28/24 07:26 Pulse Ox 95 06/28/24 07:26 FiO2 Intake & Output 06/27/24 06/28/24 06/28/24 18:59 06:59 18:59 Other: Voiding Method External Catheter External Catheter External Catheter # Voids 2 2 # Bowel Movements 2 - Exam GENERAL DESCRIPTION: An elderly female lying in bed in no distress RESPIRATORY SYSTEM: Unlabored breathing , decreased breath sounds at bases HEART: S1 S2 regular rate and rhythm , ABDOMEN: Soft , no tenderness EXTREMITIES: No edema feet - Labs CBC & Chem 7: 06/28/24 05:17 06/28/24 05:17 Labs: Abnormal Lab Results - Last 24 Hours (Table) 06/28/24 06/28/24 Range/Units 05:17 05:17 RBC 3.50 L (4.10-5.20) X 10*6/uL Hgb 11.4 L (12.0-15.0) g/dL Hct 34.6 L (37.2-46.3) % MCV 98.9 H (80.0-97.0) FL MCH 32.6 H (27.0-32.0) pg MPV 9.3 L (9.5-12.2) FL Potassium 3.0 L (3.5-5.5) mmol/L Carbon Dioxide 32.3 H (21.6-31.8) mmol/L BUN 7.0 L (9.0-27.0) mg/dL Creatinine 0.5 L (0.6-1.5) mg/dL Microbiology - Last 24 Hours (Table) 06/24/24 14:20 Blood Culture - Preliminary Blood 06/26/24 02:19 Stool Culture - Preliminary Stool Assessment and Plan (1) Sepsis Current Visit: Yes Status: Acute Code(s): A41.9 - SEPSIS, UNSPECIFIED ORGANISM SNOMED Code(s): 19001398 (2) C. difficile colitis Current Visit: Yes Status: Acute Code(s): A04.72 - ENTEROCOLITIS D/T CLOSTRIDIUM DIFFICILE, NOT SPCF RECUR SNOMED Code(s): 940706668 (3) Allergy to multiple antibiotics Current Visit: Yes Status: Acute Code(s): Z88.1 - ALLERGY STATUS TO OTHER ANTIBIOTIC AGENTS SNOMED Code(s): 694937800 Plan: 1patient presented hospital with sepsis in this patient did have fever tachycardia elevated white count meeting currently for SIRS source is likely C. difficile colitis as the patient presenting with significant diarrhea abdominal tenderness and pain and elevated white count 2patient stool for C. difficile PCR came back positive 3patient did have persistent diarrhea despite normalization of the white count we will switch her over to Dificid and see clinical response, continue Questran for symptomatic relief Dictation was produced using [employer] dictation software. please excuse any grammatical, word or spelling errors. Time with Patient: Less than 30
[2024-06-28] MEDS: FIDAXOMICIN 200 MG TABLET PO SCH (20:32)
[2024-06-29 06:05] LABS: African American GFR (CKD) >90 (>60 ml/min/1.73 sqM); Anion Gap 2 mmol/L; Blood Urea Nitrogen 8 mg/dL (7-17); Calcium 8.1 mg/dL (8.4-10.2); Carbon Dioxide 35 mmol/L (22-30); Chloride 98 mmol/L (98-107); Glucose 120 mg/dL (74-99); Non-African American GFR(CKD) >90 (>60 ml/min/1.73 sqM); Potassium 3.3 mmol/L (3.5-5.1); Sodium 135 mmol/L (137-145)
[2024-06-29] MEDS: metroNIDAZOLE 500 MG TAB PO SCH (12:16)
--- NOTE | 2024-06-29 12:55 | P.PN ---
Subjective Progress Note Date: 06/29/24 Principal diagnosis: Reason for follow-up is leukocytosis and C. difficile colitis Patient is a 78-year-old female with a past medical history significant for hypertension osteoarthritis hypothyroidism asthma anxiety did have a history of C. difficile colitis about 6 years ago, presenting to the hospital for evaluation of weakness and diarrhea patient did have elevated white count stool for C. difficile PCR came back positive. On today's evaluation that is 06/29/2024, Patient is afebrile this morning patient denies having any chest pain shortness of breath or cough, the patient is currently on room air, patient denies any abdominal pain did have some diarrhea last night but none since morning mention feeling better. Patient did have a creatinine 0.39 no CBC was done today stool culture has been negative Objective - Vital Signs Vital signs: Vital Signs Temp 98.0 F 06/29/24 07:54 Pulse 92 06/29/24 07:54 Resp 18 06/29/24 07:54 BP 122/69 06/29/24 07:54 Pulse Ox 93 L 06/29/24 07:54 FiO2 Intake & Output 06/28/24 06/29/24 06/29/24 18:59 06:59 18:59 Intake Total 236 Output Total 1 Balance 236 -1 Intake: Oral 236 Output: Stool 1 Other: Voiding Method External Catheter External Catheter # Voids 1 # Bowel Movements 2 - Exam GENERAL DESCRIPTION: An elderly female lying in bed in no distress RESPIRATORY SYSTEM: Unlabored breathing , decreased breath sounds at bases HEART: S1 S2 regular rate and rhythm , ABDOMEN: Soft , no tenderness EXTREMITIES: No edema feet - Labs CBC & Chem 7: 06/28/24 05:17 06/29/24 04:51 Labs: Abnormal Lab Results - Last 24 Hours (Table) 06/28/24 06/29/24 Range/Units 10:24 04:51 Sodium 135 L (137-145) mmol/L Potassium 3.3 L (3.5-5.1) mmol/L Carbon Dioxide 35 H (22-30) mmol/L Creatinine 0.39 L (0.52-1.04) mg/dL Glucose 120 H (74-99) mg/dL Calcium 8.1 L (8.4-10.2) mg/dL TIBC 178 L (228-460) UG/DL Transferrin 127.0 L (204.0-354.0) mg/dL Ferritin 402.0 H (10.0-291.0) ng/mL Microbiology - Last 24 Hours (Table) 06/26/24 02:19 Stool Culture - Final Stool Assessment and Plan (1) Sepsis Current Visit: Yes Status: Acute Code(s): A41.9 - SEPSIS, UNSPECIFIED ORGANISM SNOMED Code(s): 72384987 (2) C. difficile colitis Current Visit: Yes Status: Acute Code(s): A04.72 - ENTEROCOLITIS D/T CLOSTRIDIUM DIFFICILE, NOT SPCF RECUR SNOMED Code(s): 362950361 (3) Allergy to multiple antibiotics Current Visit: Yes Status: Acute Code(s): Z88.1 - ALLERGY STATUS TO OTHER ANTIBIOTIC AGENTS SNOMED Code(s): 034734078 Plan: 1patient presented hospital with sepsis in this patient did have fever tachycardia elevated white count meeting currently for SIRS source is likely C. difficile colitis as the patient presenting with significant diarrhea abdominal tenderness and pain and elevated white count 2patient stool for C. difficile PCR came back positive 3patient did mention improvement in her diarrhea with the Dificid to continue outpatient prescription has been sent to look for the coverage and monitor clinical course closely Dictation was produced using [employer] dictation software. please excuse any grammatical, word or spelling errors. Time with Patient: Less than 30
[2024-06-29] MEDS: POTASSIUM CHLORIDE ER 20 MEQ TAB.ER PO STA (14:04)
--- NOTE | 2024-06-29 17:20 | P.PN ---
Progress Note - Text Progress Note Date: 06/29/24 Reason for follow-up is leukocytosis and C. difficile colitis Patient is a 78-year-old female with a past medical history significant for hypertension osteoarthritis hypothyroidism asthma anxiety did have a history of C. difficile colitis about 6 years ago, presenting to the hospital for evaluation of weakness and diarrhea patient did have elevated white count stool for C. difficile PCR came back positive. On today's evaluation that is 06/27/2024, Patient is afebrile patient is cu rrently on room air and denies having any shortness of breath, the patient denies any chest pain or cough, the patient denies any nausea vomiting mention still having some diarrhea. Patient did not have a lab draw today stool cultures are pending June 28: Patient is at least 3 BMs in the last 24 hours. Loose. Having abdominal cramps. On a regular diet. Scale back to full liquids. On vancomy walker. No fever or chills. Some nausea. June 29: Patient is at least had 4 bowel movements since this morning. Getting abdominal cramping. Per ID patient was started on Dificid. Spoke with nurse to make sure patient is on a full liquid diet. Questran added by ID. Discussed with patient The Active Medications Acetaminophen (Acetaminophen Tab 325 Mg Tab) 650 mg PO Q6HR PRN PRN Reason: Mild Pain or Fever > 100.5 Last Admin: 06/27/24 21:46 Dose: 650 mg Acetaminophen (Acetaminophen Tab 500 Mg Tab) 500 mg PO HS PRN PRN Reason: PAIN/SLEEP Alprazolam (Alprazolam 0.5 Mg Tab) 0.5 mg PO HS PRN PRN Reason: Anxiety Last Admin: 06/26/24 22:22 Dose: 0.5 mg Cholestyramine Resin (Cholestyramine (With Sugar) 4 Gm Packet) 4 gm PO BID@0600,1800 [facility] Last Admin: 06/29/24 07:00 Dose: 4 gm Duloxetine HCl (Duloxetine Hcl 60 Mg Capsule.) 60 mg PO BID [facility] Last Admin: 06/29/24 09:07 Dose: 60 mg Enoxaparin Sodium (Enoxaparin 40 Mg/0.4 Ml Syringe) 40 mg SQ DAILY [facility] Last Admin: 06/29/24 09:08 Dose: 40 mg Fidaxomicin (Fidaxomicin 200 Mg Tablet) 200 mg PO BID [facility] Stop: 07/08/24 09:01 Last Admin: 06/29/24 09:08 Dose: 200 mg Lactated Ringer's (Lactated Ringers) 1,000 mls @ 75 mls/hr IV .[id number] [facility] Last Admin: 06/29/24 12:18 Dose: 75 mls/hr Magnesium Oxide (Magnesium Oxide 400 Mg Tab) 400 mg PO BID [facility] Stop: 06/30/24 14:59 Last Admin: 06/29/24 09:07 Dose: 400 mg Metronidazole (Metronidazole 500 Mg Tab) 500 mg PO QID [facility]; Protocol Last Admin: 06/29/24 14:04 Dose: 500 mg Modafinil (Modafinil 200 Mg Tab) 200 mg PO DAILY [facility] Last Admin: 06/29/24 09:07 Dose: 200 mg Naloxone HCl (Naloxone 0.4 Mg/Ml 1 Ml Vial) 0.2 mg IV Q2M PRN PRN Reason: Opioid Reversal Non-Formulary Medication (Protriptyline Hcl [Vivactil]) 10 mg PO TID [facility] Last Admin: 06/29/24 14:04 Dose: Not Given Thyroid (Thyroid, Pork 30 Mg Tab) 60 mg PO DAILY@0630 [facility] Last Admin: 06/29/24 07:01 Dose: 60 mg Trazodone HCl (Trazodone Hcl 50 Mg Tab) 50 mg PO HS [facility] Last Admin: 06/28/24 20:31 Dose: 50 mg On examination: VITAL SIGNS: 98, 92, 18, 122 x 69, 93% room air GENERAL APPEARANCE: BMI 21.3, up in a recliner, tired HEENT: Normal external appearance of nose and ear. Oral cavity normal EYES: Pupils equal. Conjunctiva normal. NECK: JVD not raised. Mass not palpable. RESPIRATORY: Respiratory effort normal. Lungs clear to auscultation. CARDIOVASCULAR: First and second sounds normal. No edema. ABDOMEN: Soft. Slightly distended. Tenderness present. No guarding rigidity. Liver and spleen not palpable. No tenderness. No mass palpable. MUSCULOSKELETAL: Osteoarthritis multiple joints PSYCHIATRY: Alert and oriented x3. Mood and affect normal. INVESTIGATIONS, reviewed in the clinical context: June 29: Sodium 135 potassium 3.3 creatinine 0.39. Iron 67 TIBC 178% saturation 37.6 transferrin 127 ferritin 402 B12 848 folate 7.1 TSH 2.3 June 28: White count 7.0 hemoglobin 11.4 platelets 133 sodium 139 potassium 3 BUN 7 creatinine 0.5 C. difficile toxin PCR: Positive Influenza type A, type B, RSV, SARS-CoV-2: Not detected Assessment plan: -Acute C. difficile colitis. Not improving Full liquid diet. Vancomycin being discontinued. Dificid being added by ID. -Intermittent asthma Currently controlled -Chronic fibromyalgia Cymbalta -Macrocytic anemia Normal B12 folate TSH. -Essential hypertension Chronically on Lasix. Hold for now -Hypokalemia from diarrhea Change IV fluids to LR. 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
[2024-06-29] MEDS: ACETAMINOPHEN TAB 500 MG TAB PO PRN (22:08)
--- NOTE | 2024-06-30 17:02 | P.PN ---
Subjective Progress Note Date: 06/30/24 Principal diagnosis: Reason for follow-up is leukocytosis and C. difficile colitis Patient is a 78-year-old female with a past medical history significant for hypertension osteoarthritis hypothyroidism asthma anxiety did have a history of C. difficile colitis about 6 years ago, presenting to the hospital for evaluation of weakness and diarrhea patient did have elevated white count stool for C. difficile PCR came back positive. On today's evaluation that is 06/30/2024,the patient denies any fever or any chills, patient is breathing comfortably on room air, the patient denies chest pain shortness of breath and no significant cough, patient denies abdominal pain, no nausea vomiting and diarrhea has slowed down. No new lab has been repeated today stool culture has been negative Objective - Vital Signs Vital signs: Vital Signs Temp 98 F 06/30/24 07:38 Pulse 90 06/30/24 08:00 Resp 16 06/30/24 07:38 BP 120/76 06/30/24 07:38 Pulse Ox 98 06/30/24 07:38 FiO2 Intake & Output 06/29/24 06/30/24 06/30/24 18:59 06:59 18:59 Intake Total 340 Balance 340 Intake: Oral 340 Other: Voiding Method Toilet Toilet # Voids 1 4 1 # Bowel Movements 2 2 - Exam GENERAL DESCRIPTION: An elderly female lying in bed in no distress RESPIRATORY SYSTEM: Unlabored breathing , decreased breath sounds at bases HEART: S1 S2 regular rate and rhythm , ABDOMEN: Soft , no tenderness EXTREMITIES: No edema feet - Labs CBC & Chem 7: 06/28/24 05:17 06/29/24 04:51 Labs: Microbiology - Last 24 Hours (Table) 06/24/24 14:20 Blood Culture - Final Blood Assessment and Plan (1) Sepsis Current Visit: Yes Status: Acute Code(s): A41.9 - SEPSIS, UNSPECIFIED ORGANISM SNOMED Code(s): 00686041 (2) C. difficile colitis Current Visit: Yes Status: Acute Code(s): A04.72 - ENTEROCOLITIS D/T CLOSTRIDIUM DIFFICILE, NOT SPCF RECUR SNOMED Code(s): 985330069 (3) Allergy to multiple antibiotics Current Visit: Yes Status: Acute Code(s): Z88.1 - ALLERGY STATUS TO OTHER ANTIBIOTIC AGENTS SNOMED Code(s): 435846560 Plan: 1patient presented hospital with sepsis in this patient did have fever tachycardia elevated white count meeting currently for SIRS source is likely C. difficile colitis as the patient presenting with significant diarrhea abdominal tenderness and pain and elevated white count 2patient stool for C. difficile PCR came back positive 3patient did mention improvement in her diarrhea with the Dificid which will be continued currently waiting for outpatient Dificid coverage prescription was already sent to the pharmacy yesterday Dictation was produced using [employer] dictation software. please excuse any grammatical, word or spelling errors. Time with Patient: Less than 30
--- NOTE | 2024-06-30 19:20 | P.PN ---
Progress Note - Text Progress Note Date: 06/30/24 Reason for follow-up is leukocytosis and C. difficile colitis Patient is a 78-year-old female with a past medical history significant for hypertension osteoarthritis hypothyroidism asthma anxiety did have a history of C. difficile colitis about 6 years ago, presenting to the hospital for evaluation of weakness and diarrhea patient did have elevated white count stool for C. difficile PCR came back positive. On today's evaluation that is 06/27/2024, Patient is afebrile patient is cu rrently on room air and denies having any shortness of breath, the patient denies any chest pain or cough, the patient denies any nausea vomiting mention still having some diarrhea. Patient did not have a lab draw today stool cultures are pending June 28: Patient is at least 3 BMs in the last 24 hours. Loose. Having abdominal cramps. On a regular diet. Scale back to full liquids. On vancomy walker. No fever or chills. Some nausea. June 29: Patient is at least had 4 bowel movements since this morning. Getting abdominal cramping. Per ID patient was started on Dificid. Spoke with nurse to make sure patient is on a full liquid diet. Questran added by ID. Discussed with patient June 30: Patient started on Dificid yesterday. Feeling better today. Less abdominal discomfort. Only 1 bowel movement by this afternoon. Advance to soft bland diet. Unclear Active Medications Acetaminophen (Acetaminophen Tab 325 Mg Tab) 650 mg PO Q6HR PRN PRN Reason: Mild Pain or Fever > 100.5 Last Admin: 06/27/24 21:46 Dose: 650 mg Acetaminophen (Acetaminophen Tab 500 Mg Tab) 500 mg PO HS PRN PRN Reason: PAIN/SLEEP Last Admin: 06/29/24 22:08 Dose: 500 mg Alprazolam (Alprazolam 0.5 Mg Tab) 0.5 mg PO HS PRN PRN Reason: Anxiety Last Admin: 06/30/24 01:08 Dose: 0.5 mg Cholestyramine Resin (Cholestyramine (With Sugar) 4 Gm Packet) 4 gm PO BID@0600,1800 [facility] OF [facility] Last Admin: 06/30/24 17:55 Dose: 4 gm Duloxetine HCl (Duloxetine Hcl 60 Mg Capsule.Dr) 60 mg PO BID [facility] Last Admin: 06/30/24 09:12 Dose: 60 mg Enoxaparin Sodium (Enoxaparin 40 Mg/0.4 Ml Syringe) 40 mg SQ DAILY [facility] Last Admin: 06/30/24 09:12 Dose: 40 mg Fidaxomicin (Fidaxomicin 200 Mg Tablet) 200 mg PO BID [facility] Stop: 07/08/24 09:01 Last Admin: 06/30/24 09:12 Dose: 200 mg Lactated Ringer's (Lactated Ringers) 1,000 mls @ 75 mls/hr IV .[id number] [facility] Last Admin: 06/30/24 17:54 Dose: 75 mls/hr Metronidazole (Metronidazole 500 Mg Tab) 500 mg PO QID [facility]; Protocol Last Admin: 06/30/24 17:55 Dose: 500 mg Modafinil (Modafinil 200 Mg Tab) 200 mg PO DAILY [facility] Last Admin: 06/30/24 09:12 Dose: 200 mg Naloxone HCl (Naloxone 0.4 Mg/Ml 1 Ml Vial) 0.2 mg IV Q2M PRN PRN Reason: Opioid Reversal Non-Formulary Medication (Protriptyline Hcl [Vivactil]) 10 mg PO TID [facility] Last Admin: 06/30/24 17:58 Dose: Not Given Thyroid (Thyroid, Pork 30 Mg Tab) 60 mg PO DAILY@0630 [facility] Last Admin: 06/30/24 06:43 Dose: 60 mg Trazodone HCl (Trazodone Hcl 50 Mg Tab) 50 mg PO HS [facility] Last Admin: 06/29/24 21:29 Dose: 50 mg On examination: VITAL SIGNS: 98.4, 96, 16, 144/73, 100% room air GENERAL APPEARANCE: BMI 21.3, reclining in bed HEENT: Normal external appearance of nose and ear. Oral cavity normal EYES: Pupils equal. Conjunctiva normal. NECK: JVD not raised. Mass not palpable. RESPIRATORY: Respiratory effort normal. Lungs clear to auscultation. CARDIOVASCULAR: First and second sounds normal. No edema. ABDOMEN: Soft. Slightly distended. Improved tenderness. No guarding rigidity. Liver and spleen not palpable. No tenderness. No mass palpable. MUSCULOSKELETAL: Osteoarthritis multiple joints PSYCHIATRY: Alert and oriented x3. Mood and affect normal. INVESTIGATIONS, reviewed in the clinical context: June 29: Sodium 135 potassium 3.3 creatinine 0.39. Iron 67 TIBC 178% saturation 37.6 transferrin 127 ferritin 402 B12 848 folate 7.1 TSH 2.3 June 28: White count 7.0 hemoglobin 11.4 platelets 133 sodium 139 potassium 3 BUN 7 creatinine 0.5 C. difficile toxin PCR: Positive Influenza type A, type B, RSV, SARS-CoV-2: Not detected Assessment plan: -Acute C. difficile colitis. Improving Advance to soft bland diet Vancomycin being discontinued. On Dificid. -Intermittent asthma Currently controlled -Chronic fibromyalgia Cymbalta -Macrocytic anemia Normal B12 folate TSH. -Essential hypertension Chronically on Lasix. Hold for now -Hypokalemia from diarrhea Change IV fluids to LR. 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 Diet advanced.
[2024-07-01 06:25] LABS: Basophils % (A) 0 %; Eosinophils # (A) 0.1 k/uL (0-0.7); Eosinophils % (A) 2 %; HCT 34.5 % (34.0-46.0); HGB 11.1 gm/dL (11.4-16.0); Lymphocytes # (A) 1.9 k/uL (1.0-4.8); Lymphocytes % (A) 25 %; MCHC 32.3 g/dL (31.0-37.0); MCV 102.2 fL (80.0-100.0); Macrocytosis Slight; Mean Platelet Volume 7.2; Monocytes # (A) 0.4 k/uL (0-1.0); Monocytes % (A) 6 %; Neutrophils # (A) 5.1 k/uL (1.3-7.7); Neutrophils % (A) 66 %; Platelet Count 174 k/uL (150-450); RBC 3.38 m/uL (3.80-5.40); RDW 14.2 % (11.5-15.5); WBC 7.7 k/uL (3.8-10.6)
[2024-07-01 06:50] LABS: African American GFR (CKD) >90 (>60 ml/min/1.73 sqM); Anion Gap 2 mmol/L; Blood Urea Nitrogen 5 mg/dL (7-17); Calcium 8.6 mg/dL (8.4-10.2); Carbon Dioxide 35 mmol/L (22-30); Chloride 97 mmol/L (98-107); Glucose 111 mg/dL (74-99); Non-African American GFR(CKD) >90 (>60 ml/min/1.73 sqM); Potassium 3.1 mmol/L (3.5-5.1); Sodium 134 mmol/L (137-145)
--- NOTE | 2024-07-01 13:09 | P.PN ---
Subjective Progress Note Date: 07/01/24 Principal diagnosis: Reason for follow-up is leukocytosis and C. difficile colitis Patient is a 78-year-old female with a past medical history significant for hypertension osteoarthritis hypothyroidism asthma anxiety did have a history of C. difficile colitis about 6 years ago, presenting to the hospital for evaluation of weakness and diarrhea patient did have elevated white count stool for C. difficile PCR came back positive. On today's evaluation that is 07/01/2024,the patient remains to be afebrile, patient is on room air not requiring supplemental oxygen and denies any shortness of breath no chest pain or cough.Patient denies having any nausea or vomiting, no abdominal pain and did have resolution of her diarrhea. Patient white count 7.7, creatinine 0.45 stool culture has been negative Objective - Vital Signs Vital signs: Vital Signs Temp 98.1 F 07/01/24 08:00 Pulse 90 07/01/24 08:00 Resp 16 07/01/24 08:00 BP 128/69 07/01/24 08:00 Pulse Ox 97 07/01/24 08:00 FiO2 Intake & Output 06/30/24 07/01/24 07/01/24 18:59 06:59 18:59 Intake Total 340 118 Balance 340 118 Intake: Oral 340 118 Other: Voiding Method Toilet Toilet Toilet # Voids 1 3 # Bowel Movements 1 - Exam GENERAL DESCRIPTION: An elderly female lying in bed in no distress RESPIRATORY SYSTEM: Unlabored breathing , decreased breath sounds at bases HEART: S1 S2 regular rate and rhythm , ABDOMEN: Soft , no tenderness EXTREMITIES: No edema feet - Labs CBC & Chem 7: 07/01/24 06:06 07/01/24 06:06 Labs: Abnormal Lab Results - Last 24 Hours (Table) 07/01/24 07/01/24 Range/Units 06:06 06:06 RBC 3.38 L (3.80-5.40) m/uL Hgb 11.1 L (11.4-16.0) gm/dL MCV 102.2 H (80.0-100.0) fL Sodium 134 L (137-145) mmol/L Potassium 3.1 L (3.5-5.1) mmol/L Chloride 97 L (98-107) mmol/L Carbon Dioxide 35 H (22-30) mmol/L BUN 5 L (7-17) mg/dL Creatinine 0.45 L (0.52-1.04) mg/dL Glucose 111 H (74-99) mg/dL Assessment and Plan (1) Sepsis Current Visit: Yes Status: Acute Code(s): A41.9 - SEPSIS, UNSPECIFIED ORGANISM SNOMED Code(s): 73146433 (2) C. difficile colitis Current Visit: Yes Status: Acute Code(s): A04.72 - ENTEROCOLITIS D/T CLOSTRIDIUM DIFFICILE, NOT SPCF RECUR SNOMED Code(s): 417815299 (3) Allergy to multiple antibiotics Current Visit: Yes Status: Acute Code(s): Z88.1 - ALLERGY STATUS TO OTHER ANTIBIOTIC AGENTS SNOMED Code(s): 541973179 Plan: 1patient presented hospital with sepsis in this patient did have fever tachycardia elevated white count meeting currently for SIRS source is likely C. difficile colitis as the patient presenting with significant diarrhea abdominal tenderness and pain and elevated white count 2patient stool for C. difficile PCR came back positive 3patient white count is normal afebrile and did have resolution of her diarrhea hold Questran if no bowel movement for 24-hour in view of clinical response with Dificid to continue to finish her course of therapy prescription was already sent to the pharmacy Dictation was produced using [employer] dictation software. please excuse any grammatical, word or spelling errors. Time with Patient: Less than 30
[2024-07-01 17:06] VITALS: BMI 21.2
[2024-07-01] MEDS: SIMETHICONE 80 MG CHEWABLE PO PRN (18:02)
[2024-07-01] MEDS ORDERED: SIMETHICONE 40 MG/0.6 ML DROPS 2,000 MG/30 ML BOTTLE PO PRN (21:18)
--- NOTE | 2024-07-01 21:19 | P.PN ---
Progress Note - Text Progress Note Date: 07/01/24 Reason for follow-up is leukocytosis and C. difficile colitis Patient is a 78-year-old female with a past medical history significant for hypertension osteoarthritis hypothyroidism asthma anxiety did have a history of C. difficile colitis about 6 years ago, presenting to the hospital for evaluation of weakness and diarrhea patient did have elevated white count stool for C. difficile PCR came back positive. On today's evaluation that is 06/27/2024, Patient is afebrile patient is cu rrently on room air and denies having any shortness of breath, the patient denies any chest pain or cough, the patient denies any nausea vomiting mention still having some diarrhea. Patient did not have a lab draw today stool cultures are pending June 28: Patient is at least 3 BMs in the last 24 hours. Loose. Having abdominal cramps. On a regular diet. Scale back to full liquids. On vancomy walker. No fever or chills. Some nausea. June 29: Patient is at least had 4 bowel movements since this morning. Getting abdominal cramping. Per ID patient was started on Dificid. Spoke with nurse to make sure patient is on a full liquid diet. Questran added by ID. Discussed with patient June 30: Patient started on Dificid yesterday. Feeling better today. Less abdominal discomfort. Only 1 bowel movement by this afternoon. Advance to soft bland diet. July 01: Patient seen this morning. Diarrhea is better. Requesting to stay for 1 more day. Discussed with patient. Oral intake better. Plan for discharge tomorrow. Telemetry Active Medications Acetaminophen (Acetaminophen Tab 325 Mg Tab) 650 mg PO Q6HR PRN PRN Reason: Mild Pain or Fever > 100.5 Last Admin: 06/27/24 21:46 Dose: 650 mg Acetaminophen (Acetaminophen Tab 500 Mg Tab) 500 mg PO HS PRN PRN Reason: PAIN/SLEEP Last Admin: 06/29/24 22:08 Dose: 500 mg Alprazolam (Alprazolam 0.5 Mg Tab) 0.5 mg PO HS PRN PRN Reason: Anxiety Last Admin: 07/01/24 20:56 Dose: 0.5 mg Cholestyramine Resin (Cholestyramine (With Sugar) 4 Gm Packet) 4 gm PO BID@0600,1800 LINDA Last Admin: 07/01/24 18:02 Dose: 4 gm Duloxetine HCl (Duloxetine Hcl 60 Mg Capsule.Dr) 60 mg PO BID [facility] Last Admin: 07/01/24 20:56 Dose: 60 mg Enoxaparin Sodium (Enoxaparin 40 Mg/0.4 Ml Syringe) 40 mg SQ DAILY [facility] Last Admin: 07/01/24 09:07 Dose: 40 mg Fidaxomicin (Fidaxomicin 200 Mg Tablet) 200 mg PO BID [facility] Stop: 07/08/24 09:01 Last Admin: 07/01/24 20:56 Dose: 200 mg Lactated Ringer's (Lactated Ringers) 1,000 mls @ 75 mls/hr IV .[id number] [facility] Last Admin: 07/01/24 17:59 Dose: Not Given Metronidazole (Metronidazole 500 Mg Tab) 500 mg PO QID [facility]; Protocol Last Admin: 07/01/24 20:56 Dose: 500 mg Modafinil (Modafinil 200 Mg Tab) 200 mg PO DAILY [facility] Last Admin: 07/01/24 09:07 Dose: 200 mg Naloxone HCl (Naloxone 0.4 Mg/Ml 1 Ml Vial) 0.2 mg IV Q2M PRN PRN Reason: Opioid Reversal Non-Formulary Medication (Protriptyline Hcl [Vivactil]) 10 mg PO TID [facility] Last Admin: 07/01/24 20:36 Dose: Not Given Simethicone (Simethicone 80 Mg Chewable) 80 mg PO TID PRN PRN Reason: GI Upset Last Admin: 07/01/24 18:02 Dose: 80 mg Thyroid (Thyroid, Pork 30 Mg Tab) 60 mg PO DAILY@0630 [facility] Last Admin: 07/01/24 06:39 Dose: 60 mg Trazodone HCl (Trazodone Hcl 50 Mg Tab) 50 mg PO HS [facility] Last Admin: 07/01/24 20:56 Dose: 50 mg On examination: VITAL SIGNS: 98.4, 98, 16, 129 x 35, 98% room air GENERAL APPEARANCE: Up in chair, feeling better HEENT: Normal external appearance of nose and ear. Oral cavity normal EYES: Pupils equal. Conjunctiva normal. NECK: JVD not raised. Mass not palpable. RESPIRATORY: Respiratory effort normal. Lungs clear to auscultation. CARDIOVASCULAR: First and second sounds normal. No edema. ABDOMEN: Soft. Much decreased tenderness. No guarding rigidity. Liver and spleen not palpable. No tenderness. No mass palpable. MUSCULOSKELETAL: Osteoarthritis multiple joints PSYCHIATRY: Alert and oriented x3. Mood and affect normal. INVESTIGATIONS, reviewed in the clinical context: July 01: White count 7.7 potassium 3.1 creatinine 0.45 June 29: Sodium 135 potassium 3.3 creatinine 0.39. Iron 67 TIBC 178% saturation 37.6 transferrin 127 ferritin 402 B12 848 folate 7.1 TSH 2.3 June 28: White count 7.0 hemoglobin 11.4 platelets 133 sodium 139 potassium 3 BUN 7 creatinine 0.5 C. difficile toxin PCR: Positive Influenza type A, type B, RSV, SARS-CoV-2: Not detected Assessment plan: -Acute C. difficile colitis. Improving Advance to soft bland diet Vancomycin being discontinued. On Dificid. -Intermittent asthma Currently controlled -Chronic fibromyalgia Cymbalta -Macrocytic anemia Normal B12 folate TSH. -Essential hypertension Chronically on Lasix. Hold for now -Hypokalemia from diarrhea Change IV fluids to LR. 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 Diet advanced.
[2024-07-02 04:08] LABS: African American GFR (CKD) >90 (>60 ml/min/1.73 sqM); Anion Gap 5 mmol/L; Blood Urea Nitrogen 4 mg/dL (7-17); Calcium 8.6 mg/dL (8.4-10.2); Carbon Dioxide 33 mmol/L (22-30); Chloride 99 mmol/L (98-107); Glucose 93 mg/dL (74-99); Non-African American GFR(CKD) >90 (>60 ml/min/1.73 sqM); Potassium 3.6 mmol/L (3.5-5.1); Sodium 137 mmol/L (137-145)
[2024-07-02 07:32] VITALS: BP 119/64; PULSE 73; RESP 15; TEMP 98
--- NOTE | 2024-07-02 14:37 | P.PN ---
Subjective Progress Note Date: 07/02/24 Principal diagnosis: Reason for follow-up is leukocytosis and C. difficile colitis Patient is a 78-year-old female with a past medical history significant for hypertension osteoarthritis hypothyroidism asthma anxiety did have a history of C. difficile colitis about 6 years ago, presenting to the hospital for evaluation of weakness and diarrhea patient did have elevated white count stool for C. difficile PCR came back positive. On today's evaluation that is 07/02/2024, the patient continues to be afebrile, the patient is on room air and breathing comfortably, the Pt denies having any chest pain or cough, the patient denies having any abdominal pain no vomiting d id have resolution of her diarrhea. Patient white count 7.7 as of yesterday creatinine 0.48 blood and stool culture has been negative Objective - Vital Signs Vital signs: Vital Signs Temp 98.0 F 07/02/24 07:31 Pulse 73 07/02/24 07:31 Resp 15 07/02/24 09:21 BP 119/64 07/02/24 07:31 Pulse Ox 98 07/02/24 07:31 FiO2 Intake & Output 07/01/24 07/02/24 07/02/24 18:59 06:59 18:59 Intake Total 118 Output Total 1 Balance 118 -1 Weight 54.431 kg Intake: Oral 118 Output: Stool 1 Other: Voiding Method Toilet Toilet Toilet # Voids 1 2 1 - Exam GENERAL DESCRIPTION: An elderly female lying in bed in no distress RESPIRATORY SYSTEM: Unlabored breathing , decreased breath sounds at bases HEART: S1 S2 regular rate and rhythm , ABDOMEN: Soft , no tenderness EXTREMITIES: No edema feet - Labs CBC & Chem 7: 07/01/24 06:06 07/02/24 03:24 Labs: Abnormal Lab Results - Last 24 Hours (Table) 07/02/24 Range/Units 03:24 Carbon Dioxide 33 H (22-30) mmol/L BUN 4 L (7-17) mg/dL Creatinine 0.48 L (0.52-1.04) mg/dL Assessment and Plan (1) Sepsis Status: Acute Code(s): A41.9 - SEPSIS, UNSPECIFIED ORGANISM SNOMED Code(s): 62963266 (2) C. difficile colitis Status: Acute Code(s): A04.72 - ENTEROCOLITIS D/T CLOSTRIDIUM DIFFICILE, NOT SPCF RECUR SNOMED Code(s): 631950208 (3) Allergy to multiple antibiotics Status: Acute Code(s): Z88.1 - ALLERGY STATUS TO OTHER ANTIBIOTIC AGENTS SNOMED Code(s): 753629945 Plan: 1patient presented hospital with sepsis in this patient did have fever tachycardia elevated white count meeting currently for SIRS source is likely C. difficile colitis as the patient presenting with significant diarrhea abdominal tenderness and pain and elevated white count 2patient stool for C. difficile PCR came back positive, blood culture has been negative 3patient white count is normal afebrile and did have resolution of her diarrhea 4plan is to finish therapy with oral Dificid and close outpatient follow-up question concern answered Dictation was produced using [employer] dictation software. please excuse any grammatical, word or spelling errors. Time with Patient: Less than 30
--- NOTE | 2024-07-02 20:39 | P.DS ---
Providers Date of admission: 06/24/24 19:39 Expected date of discharge: 07/02/24 Attending physician: Qasim Vigil Consults: 06/24/24 19:39 Consult Physician Routine Consulting Provider: Cassidy Wilcox Consult Reason/Comments: sirs Do you want consulting provider notified?: Yes Primary care physician: Laverne Talbot [facility] Course: Reason for follow-up is leukocytosis and C. difficile colitis Patient is a 78-year-old female with a past medical history significant for hypertension osteoarthritis hypothyroidism asthma anxiety did have a history of C. difficile colitis about 6 years ago, presenting to the hospital for evaluation of weakness and diarrhea patient did have elevated white count stool for C. difficile PCR came back positive. On today's evaluation that is 06/27/2024, Patient is afebrile patient is currently on room air and denies having any shortness of breath, the patient denies any chest pain or cough, the patient denies any nausea vomiting mention still having some diarrhea. Patient did not have a lab draw today stool cultures are pending June 28: Patient is at least 3 BMs in the last 24 hours. Loose. Having abdominal cramps. On a regular diet. Scale back to full liquids. On vancomycin. No fever or chills. Some nausea. June 29: Patient is at least had 4 bowel movements since this morning. Getting abdominal cramping. Per ID patient was started on Dificid. Spoke with nurse to make sure patient is on a full liquid diet. Questran added by ID. Discussed with patient June 30: Patient started on Dificid yesterday. Feeling better today. Less abdominal discomfort. Only 1 bowel movement by this afternoon. Advance to soft bland diet. July 01: Patient seen this morning. Diarrhea is better. Requesting to stay for 1 more day. Discussed with patient. Oral intake better. Plan for discharge tomorrow. July 02: Eating well. Abdominal pain resolved. Diarrhea well-controlled. Patient to get Dificid 200 g twice daily for 10 days. Questions answered. Follow-up with PCP. On examination: VITAL SIGNS: 98, 73, 15, 119/64, 98% room air GENERAL APPEARANCE: Lying bed, looking good r HEENT: Normal external appearance of nose and ear. Oral cavity normal EYES: Pupils equal. Conjunctiva normal. NECK: JVD not raised. Mass not palpable. RESPIRATORY: Respiratory effort normal. Lungs clear to auscultation. CARDIOVASCULAR: First and second sounds normal. No edema. ABDOMEN: Soft. No tenderness. No guarding rigidity. Liver and spleen not palpable. No tenderness. No mass palpable. MUSCULOSKELETAL: Osteoarthritis multiple joints PSYCHIATRY: Alert and oriented x3. Mood and affect normal. INVESTIGATIONS, reviewed in the clinical context: July 02: Potassium 3.6 creatinine 0.48 July 01: White count 7.7 potassium 3.1 creatinine 0.45 June 29: Sodium 135 potassium 3.3 creatinine 0.39. Iron 67 TIBC 178% saturation 37.6 transferrin 127 ferritin 402 B12 848 folate 7.1 TSH 2.3 June 28: White count 7.0 hemoglobin 11.4 platelets 133 sodium 139 potassium 3 BUN 7 creatinine 0.5 C. difficile toxin PCR: Positive Influenza type A, type B, RSV, SARS-CoV-2: Not detected Assessment plan: -Acute C. difficile colitis. Much improved Diet: Soft bland diet Vancomycin being discontinued. On Dificid. Dificid t for 10 more days -Intermittent asthma Currently controlled -Chronic fibromyalgia Cymbalta -Macrocytic anemia Normal B12 folate TSH. -Essential hypertension Chronically on Lasix. Hold for now -Hypokalemia from diarrhea: Corrected Change IV fluids to LR. Supplement potassium -Primary osteoarthritis -Hypothyroid [place] Thyroid 60 mg a day -Chronic gait dysfunction does use a four-wheel walker at baseline -Chronic anxiety depression Cymbalta 60 mg twice daily -Chronic insomnia Trazodone 50 mg nightly -DNR Disposition: Home Plan - Discharge Summary Discharge Rx Participant: No New Discharge Prescriptions: New Fidaxomicin [Dificid] 200 mg PO BID #20 tab Cholestyramine (with Sugar) [Questran Packet] 4 gm PO BID@0600,1800 #20 packet Continue DULoxetine HCL [Cymbalta] 60 mg PO BID Thyroid,Pork [[place] Thyroid] 60 mg PO DAILY traZODone HCL [Desyrel] 50 mg PO HS ALPRAZolam [Xanax] 0.5 mg PO HS PRN PRN Reason: Anxiety Protriptyline HCl [Vivactil] 10 mg PO TID Dicyclomine [Bentyl] 10 mg PO QID PRN PRN Reason: Gi Upset modafiniL [Provigil] 200 mg PO DAILY Acetaminophen/Diphenhydramine [Tylenol PM 500-25mg] 1 tab PO HS PRN PRN Reason: PAIN/SLEEP Bismuth Subsalicylate [Pepto-Bismol Ultra] 525 - 1,050 mg PO Q1H PRN PRN Reason: Gi Upset Discontinued aMILoride HCL 5 mg PO DAILY Furosemide [Lasix] 20 mg PO DAILY Vancomycin HCl [Vancocin HCl] See Taper PO DIRECTED No Action Florastor 2 cap PO DAILY Turmeric 400mg 400 mg PO DAILY Omegaxl Supplement 1 cap PO DAILY Turmeric Xl Supplement 1 cap PO DAILY Discharge Medication List DULoxetine HCL [Cymbalta] 60 mg PO BID 03/03/17 [History] ALPRAZolam [Xanax] 0.5 mg PO HS PRN 06/24/24 [History] Acetaminophen/Diphenhydramine [Tylenol PM 500-25mg] 1 tab PO HS PRN 06/24/24 [History] Bismuth Subsalicylate [Pepto-Bismol Ultra] 525 - 1,050 mg PO Q1H PRN 06/24/24 [H istory] Dicyclomine [Bentyl] 10 mg PO QID PRN 06/24/24 [History] Florastor 2 cap PO DAILY 06/24/24 [History] Omegaxl Supplement 1 cap PO DAILY 06/24/24 [History] Protriptyline HCl [Vivactil] 10 mg PO TID 06/24/24 [History] Thyroid,Pork [[place] Thyroid] 60 mg PO DAILY 06/24/24 [History] Turmeric 400mg 400 mg PO DAILY 06/24/24 [History] Turmeric Xl Supplement 1 cap PO DAILY 06/24/24 [History] modafiniL [Provigil] 200 mg PO DAILY 06/24/24 [History] traZODone HCL [Desyrel] 50 mg PO HS 06/24/24 [History] Fidaxomicin [Dificid] 200 mg PO BID #20 tab 06/29/24 [Rx] Cholestyramine (with Sugar) [Questran Packet] 4 gm PO BID@0600,1800 #20 packet 07/02/24 [Rx] Follow up Appointment(s)/Referral(s): Laverne Aviles DO [Primary Care Provider] - 1-2 Days [facility] [NON-STAFF] - As Needed ([facility]) None,Stated [REFERRING] - 1-2 days Cassidy Wilcxo MD [STAFF PHYSICIAN] - 10 Days Patient Instructions/Handouts: C. Diff (Clostridioides Difficile) Infection (ED), C. Diff (Clostridioides Difficile) Infection (DC) Activity/Diet/Wound Care/Special Instructions: soft diet yogurt bid Discharge/Stand Alone Forms: Who Do I Call?, Adult Foster Fdc List, Assisted Living Facilities, Community Resources, Help In The Home Discharge Disposition: HOME SELF-CARE
== END 2024-07-02 13:43 | disposition home or self-care (01) | DRG 872 ==
LOC: EC 13:56 → 6NMEDSUR 19:39
PROVIDERS: ADMIT Hospitalist; ATTEND Hospitalist
DX: A41.89 Other specified sepsis (principal); A04.72 Enterocolitis due to Clostridium difficile, not specified as recurrent; I10 Essential (primary) hypertension; E03.9 Hypothyroidism, unspecified; J45.20 Mild intermittent asthma, uncomplicated; F32.A Depression, unspecified; D53.9 Nutritional anemia, unspecified; E87.1 Hypo-osmolality and hyponatremia; E86.1 Hypovolemia; R30.0 Dysuria; M79.7 Fibromyalgia; E87.6 Hypokalemia; F51.04 Psychophysiologic insomnia; E86.0 Dehydration; F41.9 Anxiety disorder, unspecified; M19.91 Primary osteoarthritis, unspecified site; R26.89 Other abnormalities of gait and mobility; Z86.73 Personal history of transient ischemic attack (TIA), and cerebral infarction without residual deficits; Z79.899 Other long term (current) drug therapy; Z88.1 Allergy status to other antibiotic agents
CPT/HCPCS: 36415; 71046; 80048; 80053; 81001; 82607; 82728; 82746; 83540; 83550; 83605; 83735; 84443; 85025; 85027; 85610; 85730; 87040; 87045; 87046; 87324; 87493; 87636; 93005; 96360; 96361; 99285